=== PATIENT | female | born 1940 | race Caucasian/White ===

== ENCOUNTER → 2018-01-08 09:18 | Outpatient (CLI) | payer MEDICARE, OTHER, SELFPAY ==
[2018-01-08 10:29] LABS: Cholesterol 139 mg/dL (140-199); HDL Cholesterol 66 mg/dL (40-60); LDL Cholesterol Calculated 63 mg/dL (<100); Triglycerides 50 mg/dL (35-150)
== END ==
PROVIDERS: PCP Physician Assistant; Visit Provider Internal Medicine Cardiovascular Disease
DX: E78.5 Hyperlipidemia, unspecified (principal)
CPT/HCPCS: 36415; 80061

== ENCOUNTER → 2018-03-12 15:39 | Outpatient (CLI) | payer MEDICARE, OTHER, SELFPAY ==
--- NOTE | 2018-03-12 | DI.US.S_ITS ---
PROCEDURE: US ARTERIAL DUPLEX LE BI INDICATIONS: ATHERSCLEROTIC PLAQUE TECHNIQUE: Color and pulse Doppler interrogation was performed of both lower extremity arterial systems, with image documentation. COMPARISON: None. FINDINGS: Right lower extremity: Common femoral artery: 134 cm/sec, with triphasic flow. Deep femoral artery: 52 cm/sec, with biphasic flow. Proximal superficial femoral artery: 82 cm/sec, with biphasic flow. Mid superficial femoral artery: 102 cm/sec, with biphasic flow. Distal superficial femoral artery: 75 cm/sec, with biphasic flow. Popliteal artery: 53 cm/sec, with biphasic flow. Posterior tibial artery: 48 cm/sec, with a biphasic flow. Anterior tibial artery/dorsalis pedis: 27 cm/sec, with biphasic flow. Smith-scale imaging description: Mild scattered calcific and soft plaque. Left lower extremity: Common femoral artery: 128 cm/sec, with triphasic flow. Deep femoral artery: 74 cm/sec, with biphasic flow. Proximal superficial femoral artery: 141 cm/sec, with biphasic flow. Mid superficial femoral artery: 93 cm/sec, with biphasic flow. Distal superficial femoral artery: 85 cm/sec, with biphasic flow. Popliteal artery: 65 cm/sec, with biphasic flow. Posterior tibial artery: 87 cm/sec, with biphasic flow. Anterior tibial artery/dorsalis pedis: 49 cm/sec, with a biphasic flow. Smith-scale imaging description: Mild calcific and soft plaque. IMPRESSION: No significant stenosis found. Scattered calcific and soft plaque within the lower extremity arterial vasculature bilaterally. Dictated by: Umberto Simpson M.D. on 03/12/2018 at 16:48 Approved by: Umberto Simpson M.D. on 03/12/2018 at 16:51
== END ==
PROVIDERS: PCP Physician Assistant; Visit Provider Internal Medicine Cardiovascular Disease
DX: I70.203 Unspecified atherosclerosis of native arteries of extremities, bilateral legs (principal)
CPT/HCPCS: 93925

== ENCOUNTER → 2018-03-26 12:37 | Outpatient (CLI) | payer MEDICARE, OTHER, SELFPAY ==
--- NOTE | 2018-03-26 | DI.MRI.S_ITS ---
PROCEDURE: MR ABDOMEN WO CON INDICATIONS: INTRADUCTAL PAPILLARY MUCINOUS NEOPLASM TECHNIQUE: Coronal HASTE through the abdomen, axial 2-D FLASH in- and [id number], and breath-hold T2 FSE with fat saturation through the biliary system and pancreas. Oblique coronal and axial thin-slice HASTE, radial thick-slab HASTE centered on the extrahepatic bile ducts. COMPARISON: [facility], CT, IVP (ABD & PEL WWO CONTRAST), 09/29/2014, 11:29. [facility], CT, ABDOMEN/PELVIS WITHOUT CONTRAS, 07/17/2016, 12:52. [facility], MR, ABDOMEN W&WO CONTRAST, 06/10/2017, 15:58. [facility], CT, ABDOMEN/PELVIS WITH CONTRAST, 11/01/2017, 18:19. FINDINGS: Image quality: There is motion artifact limiting evaluation. Pancreas: There is segmental dilatation of the distal pancreatic duct in the tail measures up to approximately 10 mm in diameter. This has progressively increased in size compared to the prior studies. 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 The more proximal pancreatic duct within the body and pancreatic head are normal in caliber measuring up to 3 mm. There is a small cyst in the pancreatic body adjacent to the main duct measuring up to 6 mm palpable with a small side branch IPMN. Other solid organs: Noncontrast evaluation of the liver demonstrates no focal hepatic lesions. Gallbladder appears within normal limits without gallstones. No intra-or extrahepatic biliary ductal dilatation. Spleen is normal in size. No adrenal nodules. Kidneys demonstrate no hydronephrosis. Nodes and vessels: No retroperitoneal or mesenteric adenopathy by size criteria. Aorta and inferior vena cava are normal in size. Bowel and peritoneum: Visualized bowel loops are normal in caliber. No free fluid. Lung bases: No basal pleural effusions. Heart size is normal. Bones and soft tissues: No ventral hernias. Bone marrow is of normal overall signal. IMPRESSION: 1. Segmental dilatation of the distal pancreatic duct in the tail progressively increased in diameter compared to the prior studies. 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 Given its progressive increase increase in distention and maximum diameter of 10 mm, there is increased risk of malignancy. Recommend histologic sampling with FNA if clinically indicated. 2. Small side branch IPMN in the pancreatic body also noted measuring up to 6 mm. Dictated by: Darryl Diego M.D. on 03/26/2018 at 16:45 Approved by: Darryl Diego M.D. on 03/26/2018 at 17:00
== END ==
PROVIDERS: Family Provider Internal Medicine Gastroenterology; PCP Physician Assistant; Visit Provider Surgery
DX: D49.0 Neoplasm of unspecified behavior of digestive system (principal)
CPT/HCPCS: 74181

== ENCOUNTER → 2018-04-15 11:49 | Outpatient (CLI) | payer MEDICARE, OTHER, SELFPAY ==
--- NOTE | 2018-05-02 10:11 | PM.PFT.1 ---
Pulmonary Function Test Referral & Results Date Patient Seen: 04/15/18 Requesting provider: Sadia Latif Indication: COPD Results: The spirometry demonstrates an FVC of 2.02 L which is 60% of predicted. The FEV1 was measured at 1.34 L which is 61% of predicted. The FEV1/FVC ratio was 67 which is 89% of predicted. Following the administration of bronchodilator there was 11% improvement in FEV1 and a 53% improvement in FEF 25-75%. Lung volumes show an SVC of 2.13 L which is 73% of predicted. Maximum voluntary ventilation was reduced The diffusing capacity was measured at 19.81 which is 73% of predicted. No hemoglobin value was provided, so no correction for potential anemia could be made, if appropriate. Interpretation: This study demonstrates moderate obstructive lung disease with some evidence of benefit following bronchodilator based on improvement in FEV1 as well as moderate restrictive lung disease. There is also slight reduction in diffusing capacity unless patient is anemic Compared to PFTs performed in June 2016, current study is essentially unchanged to slightly improved. FEV1 is actually slightly improved at 1.34 L versus 1.25 L previously. Diffusing capacity is significantly improved from previous which was 41% of predicted currently 73% of predicted. Clinical correlation suggested
== END ==
PROVIDERS: Family Provider Internal Medicine Gastroenterology; PCP Physician Assistant; Visit Provider Internal Medicine Critical Care Medicine
DX: J44.9 Chronic obstructive pulmonary disease, unspecified (principal)
CPT/HCPCS: 94010; 94060; 94726; 94729

== ENCOUNTER → 2018-05-08 11:28 | Outpatient (CLI) | payer MEDICARE, OTHER, SELFPAY ==
[2018-05-08 12:11] LABS: Add Manual Diff / Slide Review NO; Basophils Percent Auto 0.7 % (0-2); Eosinophils Percent Auto 0.9 % (2-4); Hemoglobin 15.3 g/dL (12.0-16.0); Lymphocytes Percent Auto 16.9 % (25-40); Mean Corpuscular HGB Conc 34.1 % (30-36); Mean Corpuscular Hemoglobin 32.8 PG (26-34); Mean Corpuscular Volume 96.3 fL (80-100); Monocytes Percent Auto 6.4 % (3-14); Neutrophils Absolute Auto 6900 /uL (3000-5900); Neutrophils Percent Auto 75.1 % (50-75); Platelet Count 270 X10^3/uL (150-400); Red Blood Cell Count 4.68 X10^6/uL (4.0-5.2); Red Cell Distribution Width 13.3 % (11.6-14.8); White Blood Cell Count 9.2 X10^3/uL (4.5-11.0)
[2018-05-08 12:48] LABS: Alanine Aminotransferase 34 IU/L (9-52); Albumin 4.5 g/dL (3.5-5.0); Albumin Globulin Ratio 1.5 (1.0-2.8); Alkaline Phosphatase 71 U/L (38-126); Aspartate Aminotransferase 25 IU/L (14-36); BUN Creatinine Ratio 23.8 (6-22); Bilirubin Total 0.9 mg/dL (0.2-1.3); Blood Urea Nitrogen 19 mg/dL (7-17); Calcium 9.9 mg/dL (8.4-10.2); Carbon Dioxide 36 mmol/L (22-32); Chloride 100 mmol/L (98-107); Estimated Glomerular Filt Rate > 60.0 mL/min (>60); Glucose 103 mg/dL (80-110); HEMOLYSIS < 15 (0-50); Potassium 4.6 mmol/L (3.4-5.1); Sodium 146 mmol/L (137-145); Total Protein 7.5 g/dL (6.3-8.2)
== END ==
PROVIDERS: PCP Physician Assistant; Visit Provider Surgery
DX: R93.3 Abnormal findings on diagnostic imaging of other parts of digestive tract (principal); Z01.818 Encounter for other preprocedural examination
CPT/HCPCS: 36415; 80053; 85025; 93005

== ENCOUNTER → 2018-05-31 11:29 | Outpatient (REF) | payer MEDICARE, OTHER, SELFPAY ==
[2018-05-31 11:32] LABS: Bacteria Urine None Seen; RBC Urine None Seen (0-5/HPF); WBC Urine None Seen (0-5/HPF)
[2018-05-31 11:55] LABS: Appearance Urine UA CLEAR; Bilirubin Urine UA NEGATIVE (NEGATIVE); Color Urine UA YELLOW; Glucose Urine UA NEGATIVE (Normal); Ketones Urine UA NEGATIVE (NEGATIVE); Leukocyte Esterase Urine UA NEGATIVE (NEGATIVE); Nitrite Urine UA NEGATIVE (Negative); Occult Blood Urine UA NEGATIVE (Negative); Protein Urine UA NEGATIVE (Negative); Urobilinogen Urine UA 0.2 E.U./dL (0.2)
[2018-05-31 12:17] LABS: Culture Indicated Urine Cult Not Indicated; Urine Comments Microscopic Normal
== END ==
LOC: LAB 11:29
PROVIDERS: Family Provider Internal Medicine Gastroenterology; PCP Physician Assistant; Visit Provider Physician Assistant
DX: R30.0 Dysuria (principal)
CPT/HCPCS: 81001; 87086

== ENCOUNTER → 2018-07-10 09:15 | Outpatient (CLI) | payer MEDICARE, OTHER, SELFPAY ==
[2018-07-10 10:14] LABS: Add Manual Diff / Slide Review NO; Basophils Percent Auto 1.3 % (0-2); Hemoglobin 13.9 g/dL (12.0-16.0); Lymphocytes Percent Auto 19.8 % (25-40); Mean Corpuscular Hemoglobin 32.4 PG (26-34); Mean Corpuscular Volume 98.3 fL (80-100); Monocytes Percent Auto 8.4 % (3-14); Neutrophils Absolute Auto 6700 /uL (3000-5900); Neutrophils Percent Auto 68.5 % (50-75); Platelet Count 430 X10^3/uL (150-400); Red Blood Cell Count 4.27 X10^6/uL (4.0-5.2); Red Cell Distribution Width 13.7 % (11.6-14.8); White Blood Cell Count 9.8 X10^3/uL (4.5-11.0)
[2018-07-10 11:10] LABS: Alanine Aminotransferase 32 IU/L (9-52); Albumin 4.3 g/dL (3.5-5.0); Albumin Globulin Ratio 1.6 (1.0-2.8); Alkaline Phosphatase 79 U/L (38-126); Aspartate Aminotransferase 28 IU/L (14-36); Blood Urea Nitrogen 27 mg/dL (7-17); Carbon Dioxide 33 mmol/L (22-32); Chloride 102 mmol/L (98-107); Estimated Glomerular Filt Rate > 60.0 mL/min (>60); Globulin 2.7 g/dL (1.7-4.1); Glucose 101 mg/dL (80-110); HEMOLYSIS < 15 (0-50); Potassium 4.8 mmol/L (3.4-5.1); Sodium 146 mmol/L (137-145)
[2018-07-10 11:42] LABS: TSH w/ Reflex to FT4 2.02 uIU/mL (0.47-4.68)
[2018-07-10 11:43] LABS: Cancer Antigen 125 20 U/mL (0-35)
[2018-07-10 13:23] LABS: Free T4, Direct Thyroxine 1.28 ng/dL (0.78-2.19)
== END ==
PROVIDERS: PCP Physician Assistant; Visit Provider Physician Assistant
DX: Z12.73 Encounter for screening for malignant neoplasm of ovary (principal); R19.09 Other intra-abdominal and pelvic swelling, mass and lump; E78.5 Hyperlipidemia, unspecified; F17.200 Nicotine dependence, unspecified, uncomplicated; R63.4 Abnormal weight loss; E07.9 Disorder of thyroid, unspecified; R73.9 Hyperglycemia, unspecified
CPT/HCPCS: 36415; 80053; 84439; 84443; 85025; 86304

== ENCOUNTER → 2018-10-01 12:27 | Outpatient (CLI) | payer MEDICARE, OTHER, SELFPAY ==
--- NOTE | 2018-10-01 | DI.US.S_ITS ---
PROCEDURE: US PERIPH VENOUS LOW EXTREM LT INDICATIONS: LEFT LEG EDEMA TECHNIQUE: Real-time imaging, as well as color and pulse Doppler interrogation, were performed of the lower extremity deep veins from the inguinal ligament to the popliteal fossa. COMPARISON: None. FINDINGS: The deep veins are normally compressible, and free of intraluminal thrombus. Color and pulse Doppler demonstrate normal phasic intraluminal flow. There is normal augmentation response to distal compression maneuver. Nonspecific left lower extremity edema is noted. IMPRESSION: No evidence of deep vein thrombosis involving the left lower extremity. Dictated by: Claudia Alfredo MD, PhD on 10/01/2018 at 13:29 Approved by: Claudia Alfredo MD, PhD on 10/01/2018 at 13:29
== END ==
PROVIDERS: PCP Physician Assistant; Visit Provider Internal Medicine Critical Care Medicine
DX: R60.0 Localized edema (principal)
CPT/HCPCS: 93971

== ENCOUNTER → 2018-10-14 11:57 | Outpatient (CLI) | payer MEDICARE, OTHER, SELFPAY ==
--- NOTE | 2018-10-14 12:04 | DI.RAD.S_ITS ---
PROCEDURE: XR CHEST 2V INDICATIONS: COPD TECHNIQUE: 2 views of the chest were acquired. COMPARISON: [facility], , CHEST 2 VIEW, 07/19/2016, 15:58. FINDINGS: Surgical changes and devices: Surgical clips projecting over the right hemithorax as before. Lungs and pleura: Lungs are hyperinflated. No acute consolidation. Scattered subsegmental atelectasis and/or scarring. No pleural effusions or pneumothorax. Mediastinum: Mediastinal contours are normal. Heart size is normal. Bones and chest wall: No suspicious bony abnormalities. Soft tissues appear unremarkable. IMPRESSION: No acute consolidation. Hyperinflated lungs in keeping with chronic obstructive physiology. Dictated by: Rickie Larson M.D. on 10/14/2018 at 14:37 Approved by: Rickie Larson M.D. on 10/14/2018 at 14:38
[2018-10-14 12:36] LABS: Add Manual Diff / Slide Review NO; Basophils Absolute Auto 100 /uL (0-100); Basophils Percent Auto 1.3 % (0-2); Eosinophils Absolute Auto 100 /uL (0-450); Eosinophils Percent Auto 0.9 % (2-4); Hematocrit 45.5 % (36-46); Hemoglobin 15.4 g/dL (12.0-16.0); Lymphocytes Absolute Auto 2500 /uL (1100-4500); Lymphocytes Percent Auto 29.5 % (25-40); Mean Corpuscular HGB Conc 33.9 % (30-36); Mean Corpuscular Hemoglobin 32.9 PG (26-34); Mean Corpuscular Volume 97.1 fL (80-100); Monocytes Absolute Auto 800 /uL (0-900); Monocytes Percent Auto 9.6 % (3-14); Neutrophils Absolute Auto 5000 /uL (1500-7000); Neutrophils Percent Auto 58.7 % (50-75); Platelet Count 292 X10^3/uL (150-400); Red Blood Cell Count 4.68 X10^6/uL (4.0-5.2); Red Cell Distribution Width 13.8 % (11.6-14.8); White Blood Cell Count 8.5 X10^3/uL (4.5-11.0)
--- NOTE | 2018-10-14 12:37 | DI.CT.S_ITS ---
PROCEDURE: CT ABDOMEN WO/W CON INDICATIONS: INTRADUCTAL PAPILLARY MUCINOUS NEOPLASM TECHNIQUE: Noncontrast 3 mm thick sections acquired through the pancreas. After the administration of intravenous contrast, 3 mm thick pancreatic-phase images acquired from the diaphragm to the iliac crests. 3 mm thick coronal and sagittal reformats were performed. For radiation dose reduction, the following was used: automated exposure control, adjustment of mA and/or kV according to patient size. COMPARISON: [facility], MR, MR ABDOMEN WO CON, 03/26/2018, 12:57. [facility], CT, ABDOMEN/PELVIS WITH CONTRAST, 11/01/2017, 18:19. FINDINGS: Image quality: Excellent. Lung bases: Mild bibasilar interstitial septal thickening/scarring. Lung bases are otherwise clear. Heart size is normal. Pancreas: There has been interval surgical change of distal pancreatectomy and splenectomy. A 6 mm cyst in the caudal proximal tail of the pancreas is stable. Proximal pancreas has otherwise homogeneous morphology. The pancreatic duct measures 3 mm. Other solid organs: Liver is normal in size and enhancement. Gallbladder is elongated. The visible portions normal. Biliary system is non dilated. Spleen is surgically absent. No residual splenic tissue. No adrenal nodules. Kidneys are normal in size and enhancement, without hydronephrosis. 3 mm right lower pole intrarenal calcification. Peritoneum and bowel: Distal stomach demonstrates mild low-density circumferential wall thickening of the antrum. The visible bowel loops demonstrate normal wall thickness and caliber. No free fluid or air. Nodes and vessels: No retroperitoneal or mesenteric adenopathy by size criteria. Aorta and inferior vena cava are normal in size. Moderately heavy abdominal aortic calcification. Bones: No suspicious bony lesions. No vertebral body compression fractures. Degenerative disc change at L4-5. Miscellaneous: No ventral hernias. IMPRESSION: 1. Interval distal pancreatectomy and splenectomy. 2. Stable 6 mm pancreatic cyst. 3. Heavy abdominal aortic atherosclerosis. 4. Nonobstructive 3 mm right lower pole calcification. Dictated by: Myra Jain M.D. on 10/14/2018 at 16:15 Approved by: Myra Jain M.D. on 10/14/2018 at 16:40
[2018-10-14 12:46] LABS: Alanine Aminotransferase 34 IU/L (9-52); Albumin 4.8 g/dL (3.5-5.0); Albumin Globulin Ratio 1.4 (1.0-2.8); Alkaline Phosphatase 85 U/L (38-126); Aspartate Aminotransferase 35 IU/L (14-36); BUN Creatinine Ratio 27.8 (6-22); Blood Urea Nitrogen 25 mg/dL (7-17); Calcium 9.8 mg/dL (8.4-10.2); Carbon Dioxide 31 mmol/L (22-32); Chloride 102 mmol/L (98-107); Estimated Glomerular Filt Rate > 60.0 mL/min (>60); Globulin 3.5 g/dL (1.7-4.1); Glucose 84 mg/dL (80-110); HEMOLYSIS < 15 (0-50); Potassium 5.2 mmol/L (3.4-5.1); Sodium 142 mmol/L (137-145); Total Protein 8.3 g/dL (6.3-8.2)
== END ==
PROVIDERS: PCP Physician Assistant; Referring Provider Internal Medicine Gastroenterology; Visit Provider Surgery
DX: K86.2 Cyst of pancreas (principal); I70.0 Atherosclerosis of aorta; N20.0 Calculus of kidney; J44.9 Chronic obstructive pulmonary disease, unspecified; Z90.81 Acquired absence of spleen
CPT/HCPCS: 36415; 71046; 74170; 80053; 85025; Q9967

== ENCOUNTER → 2019-03-21 08:29 | Outpatient (CLI) | payer MEDICARE, OTHER, SELFPAY ==
[2019-01-06 13:27] VITALS: BMI 19.2
[2019-03-21 10:03] LABS: Add Manual Diff / Slide Review NO; Basophils Absolute Auto 100 /uL (0-100); Eosinophils Absolute Auto 100 /uL (0-450); Eosinophils Percent Auto 1.2 % (2-4); Hematocrit 46.7 % (36-46); Hemoglobin 15.9 g/dL (12.0-16.0); Lymphocytes Absolute Auto 2200 /uL (1100-4500); Lymphocytes Percent Auto 19.9 % (25-40); Mean Corpuscular Hemoglobin 33.2 PG (26-34); Mean Corpuscular Volume 97.7 fL (80-100); Monocytes Absolute Auto 900 /uL (0-900); Monocytes Percent Auto 8.3 % (3-14); Neutrophils Absolute Auto 7700 /uL (1500-7000); Neutrophils Percent Auto 69.6 % (50-75); Platelet Count 261 X10^3/uL (150-400); Red Blood Cell Count 4.78 X10^6/uL (4.0-5.2); Red Cell Distribution Width 13.1 % (11.6-14.8); White Blood Cell Count 11.1 X10^3/uL (4.5-11.0)
[2019-03-21 10:11] LABS: BUN Creatinine Ratio 26.3 (6-22); Blood Urea Nitrogen 21 mg/dL (7-17); Calcium 9.7 mg/dL (8.4-10.2); Carbon Dioxide 31 mmol/L (22-32); Chloride 102 mmol/L (98-107); Cholesterol 143 mg/dL (140-199); Estimated Glomerular Filt Rate > 60.0 mL/min (>60); Glucose 99 mg/dL (80-110); HDL Cholesterol 61 mg/dL (40-60); HEMOLYSIS 21 (0-50); LDL Cholesterol Calculated 68 mg/dL (<100); Potassium 4.5 mmol/L (3.4-5.1); Sodium 141 mmol/L (137-145); Triglycerides 71 mg/dL (35-150)
== END ==
PROVIDERS: Family Provider Physician Assistant; PCP Physician Assistant; Visit Provider Internal Medicine Cardiovascular Disease
DX: E78.5 Hyperlipidemia, unspecified (principal); I70.90 Unspecified atherosclerosis
CPT/HCPCS: 36415; 80048; 80061; 85025

== ENCOUNTER 2019-05-06 11:30 | Outpatient (RCR) | payer MEDICARE, OTHER, SELFPAY ==
[2019-01-06 13:27] VITALS: BP 122/80; RESP 14; O2SAT 98; BMI 19.2
--- NOTE | 2019-01-06 13:51 | PR.IEVALNOTE ---
Current Diagnoses Chronic obstructive pulmonary disease, unspecified (01/06/19) Provider Team Visit Care Team Role Provider Type Hannah Rush PA-C Primary Care Provider Advanced Social Worker Psychiatric Specialty: Internal Medicine Address: [address] [place] [address], [phone] Email: Sadia Latif MD Attending Provider Non-Staff Specialty: Pulmonology Address: [address] [place] [address], [phone] Email: Pulmonary Rehab Initial Evaluation [place] Pulmonary Rehab Inital Assessment Start: 01/06/19 10:00 Freq: Status: Active Protocol: Document 01/06/19 13:27 CARA (Rec: 01/06/19 13:51 CARA [id number]) CO Exercise Assessment Dx: COPD moderate Primary Language ROMANSH Candy Butcher Required No Hearing Ability Normal Visual Impairment No Limitations Visual Assist Glasses Body Alignment Posture Good Posture Relaxed Assistive Devices None Comment no current exercise routine CO Vital Signs Pulse Oximetry (91-100 %) 98 Nasal Cannula No Respiratory Rate (12-24 breaths/min) 14 Respiratory Effort Non-Labored Respiratory Depth Normal Assessment clear to auscultation good areation no wheeze rhonchi or crackles Left Arm Blood Pressure (90/60-140/90 mmHg) 122/80 Blood Pressure Method Manual Cuff/Auscultation Blood Pressure Position Sitting CO Six Minute Walk Test Oxygen Delivery Method Nasal Cannula Oxygen Flow Rate (L) (L/min) 2 Respiratory Rate (breaths/min) 14 Pulse Rate (beats/min) 78 O2 Saturation by Pulse Oximetry (%) 98 Pulse Rate (beats/min) 86 Ambulation Distance (feet) 300 O2 Saturation by Pulse Oximetry (%) 95 Pulse Rate (beats/min) 92 Ambulation Distance (feet) 250 O2 Saturation by Pulse Oximetry (%) 97 Pulse Rate (beats/min) 92 Ambulatory Distance (feet) 250 O2 Saturation by Pulse Oximetry (%) 97 Pulse Rate (beats/min) 93 Ambulation Distance (feet) 300 O2 Saturation by Pulse Oximetry (%) 95 Pulse Rate (beats/min) 93 Ambulation Distance (feet) 300 O2 Saturation by Pulse Oximetry (%) 94 PUlse Rate (beats/min) 90 Ambulation Distance (feet) 325 O2 Saturation by Pulse Oximetry (%) 91 Respiratory Rate (breaths/min) 16 Pulse Rate (beats/min) 86 O2 Saturation by Pulse Oximetry (%) 98 Activity Tolerance Good Distance 1175 Marlyn RPE Scale 11 Oriented to RPE Scale Yes Dyspnea 2 Oriented to Dyspnea Scale Yes CO Exercise Goals Exercise Goals Progression of exercise volume will result from increases in time, intensity, and frequency. Initial emphasis will be on increasing time Exercise Goals demonstrate proper technique with pursed lip breathing demonstrate breath sequencing with ADL's, stairs, etc demonstrate proper technique with respiratory medications DASI Number and Comment NA Short Term establish regular exercise routine Detention improve stamina and muscle strength CO Pulmonary Rehab Orientation Complete Complete Yes CO Nutrition Assessment PFT Date 04/15/18 Forced Vital Capacity (FVC) 2.02 68% Slow Vital Capacity (SVC) 2.13 73% Forced Exp. Volume/Forced Vital Cap 67 89% Ratio (FEV1/FVC Ratio) Forced Expiratory Volume in 1 sec. 1.34 61% Diffusing Capacity of the Lung (DLCO) 73 Admit Height 167.64 cm Admit Weight 53.977 kg Admit Body Mass Index (BMI) 19.2 Liters Per Minute at Rest RA Liters per Minute with ADL's 2 Liters per Minute with Sleep 2 Liters per Minute with Exercise 2 Oxygen Intervention/Education Discussed supplemental O2 compliance with ADL's High Energy Periods Mid-Morning Afternoon Mid-Afternoon Tolerates Activity Fair Daytime Naps No CO Education Pre-Test Score NA Tobacco Use Current Smoker Tobacco Product Used CIGARETTES Additional Comment patient is currently smoking 1 /2 cigarette per day after having been quit for several months Concerns None Interested in Smoking Cessation No Not Interested in Smoking Cessation No Education Topics Breathing Retraining Discussed Education Requirements on Yes Intake CO Psychosocial Initial Assess HADS Score NA HADS Score NA Marital Status Physician Comment Ready for Pulmonary Rehabilitation Cooperative Motivated
--- NOTE | 2019-03-26 15:41 | PR.REVALNOTE ---
Current Diagnoses Chronic obstructive pulmonary disease, unspecified (03/26/19) Provider Team Visit Care Team Role Provider Type Hannah Rush PA-C Primary Care Provider Advanced Developmental Therapist Specialty: Internal Medicine Address: [address] [place] [address], [phone] Email: [email or web address] Sadia Latif MD Attending Provider Non-Staff Specialty: Pulmonology Address: [address] [place] [address], [phone] Email: Pulmonary Rehab Re-Evaluation [place] Pulmonary Rehab. Re-Assessment Start: 01/06/19 10:00 Freq: Status: Active Protocol: Document 02/12/19 15:40 DEYANIRAChristopher (Rec: 02/12/19 15:40 JWChristopher [email or web address]) [place] Exercise Re-Assessment New Session Number 1-12 Type Nustep Treadmill Interval Training Yes Shortness of Breath with Exercise Yes Desaturation with Exercise No Document 03/26/19 15:28 JWS (Rec: 03/26/19 15:41 JWS [id number]) AK Exercise Re-Assessment New Session Number 12-24 Type Nustep Treadmill METs (resistance level) 2.78 NS 4.67 TM % Improvement 20% NS 8%NS Interval Training Yes: 4.67 NS Shortness of Breath with Exercise Yes Desaturation with Exercise No Free Weight Yes: 5# 12R 2S Band Level Yes: #4 Toward Target Goals Demonstrates proper technique with PLB-goal met demonstrates breath sequencing with ADL's and stairs-showing progress demonstrates proper technique with respiratory medications- goal met interventions listeed above have been completed will continue to reinforce AK Education Re-Assessment Topics Normal Anatomy and Physiology Breathing Retraining Medication Benefits of Exercise Activities of daily living/ Leisure Activities Irritant Avoidance/Prevention of Respiratory Infections Coping with Chronic Lung Disease Goals Pt will Master PLB and Diaphragmatic Breathing Pt will Master Energy Conserving Techniques Pt will learn exercise safety Pt will continue ED topics until completion AK Psychosocial Re-Assessment Patient in Class Regularly Yes Interventions Pt attending class regularly Referral Needed No Goals Pt will continue to attend classes 3x wk Participate in social and educational discussion Received emotional support from family/friends
--- NOTE | 2019-05-06 15:56 | PR.DCNOTE ---
Current Diagnoses Chronic obstructive pulmonary disease, unspecified (05/06/19) Visit Care Team Role Provider Type Hannah Rush PA-C Primary Care Provider Advanced Sql Report Writer Specialty: Internal Medicine Address: [address] [place] [address], [id number] Email: [email or web address] Sadia Latif MD Attending Provider Non-Staff Specialty: Pulmonology Address: [address] [place] [address], [phone] Email: Pulmonary Rehab Discharge Evaluation RI Education Start: 01/06/19 10:00 Freq: Status: Active Protocol: Document 05/04/19 13:34 [facility] (Rec: 05/04/19 13:35 [facility] [id number]) RI Education Education Pt did attend Education today with the Housekeeper/Custodian/Laundry Worker. Subjects to include, Labels/Sugars and Salts. [place] Pulmonary Rehab. DC Assessment Start: 01/06/19 10:00 Freq: Status: Active Protocol: Document 05/06/19 15:42 JW (Rec: 05/06/19 15:56 [facility] [email or web address]) RI Exercise Discharge Assess Session 9 Type Nustep,Treadmill METs (resistance level) 6.31 TM, 4.35 NS % Improvement 6% TM, 56% NS Interval Training Yes: 8.93TM, 4.88 NS Shortness of Breath with Exercise Yes Desaturation with Exercise No Free Weight Yes: 4# 12R 2S Band Level Yes: #4 Toward Target Goals Increased participation in physical activities, including domestic and recreational activities. Improved functional capacity with improved endurance and strength. participates in aerobic exercise 30-60 min 3x week increased met tolerance 198% RI Nutrition DC Assessment Patient Ready Yes Reason Completed Max Sessions RI Education DC Assessment Post Test Score 79% % Improvement 0% Tobacco Use No RI Psychosocial DC Assessment HADS Depression Score 1 HADS Anxiety Score 5 Phase III Yes Referral Needed No RI Six Minute Walk Test Oxygen Delivery Method Nasal Cannula Oxygen Flow Rate (L) (L/min) 2.5 Respiratory Rate (breaths/min) 14 Pulse Rate (beats/min) 76 O2 Saturation by Pulse Oximetry (%) 95 Pulse Rate (beats/min) 85 Ambulation Distance (feet) 350 O2 Saturation by Pulse Oximetry (%) 95 Pulse Rate (beats/min) 91 Ambulation Distance (feet) 300 O2 Saturation by Pulse Oximetry (%) 98 Pulse Rate (beats/min) 97 Ambulatory Distance (feet) 300 O2 Saturation by Pulse Oximetry (%) 96 Pulse Rate (beats/min) 98 Ambulation Distance (feet) 250 O2 Saturation by Pulse Oximetry (%) 98 Pulse Rate (beats/min) 101 Ambulation Distance (feet) 300 O2 Saturation by Pulse Oximetry (%) 95 PUlse Rate (beats/min) 100 Ambulation Distance (feet) 340 O2 Saturation by Pulse Oximetry (%) 98 Respiratory Rate (breaths/min) 16 Pulse Rate (beats/min) 86 O2 Saturation by Pulse Oximetry (%) 98 Activity Tolerance Good Adverse Reactions Increased Shortness of Breath Distance 1939 Marlyn RPE Scale 10 Oriented to RPE Scale Yes Dyspnea 1 Oriented to Dyspnea Scale Yes
== END 2019-05-14 07:49 ==
LOC: PUL 11:30
PROVIDERS: PCP Physician Assistant; Visit Provider Internal Medicine Critical Care Medicine
DX: J44.9 Chronic obstructive pulmonary disease, unspecified (principal)
CPT/HCPCS: G0424

== ENCOUNTER → 2019-05-07 09:50 | Outpatient (CLI) | payer MEDICARE, OTHER, SELFPAY ==
[2019-01-06 13:27] VITALS: BMI 19.2
--- NOTE | 2019-05-07 | DI.CT.S_ITS ---
PROCEDURE: CT ABDOMEN WO/W CON INDICATIONS: PANCREATIC CYST TECHNIQUE: Noncontrast 3 mm thick sections acquired through the pancreas. After the administration of intravenous contrast, 3 mm thick pancreatic-phase images acquired from the diaphragm to the iliac crests. 3 mm thick coronal and sagittal reformats were performed. For radiation dose reduction, the following was used: automated exposure control, adjustment of mA and/or kV according to patient size. COMPARISON: [facility], CT, CT ABDOMEN WO/W CON, 10/14/2018, 13:02. MRI abdomen 03/26/2018. CT IVP 09/29/2014. FINDINGS: Image quality: Excellent. Lung bases: Lung bases are clear. Heart size is normal. Pancreas: Post distal pancreatectomy. Small cyst in the body measuring 5 mm, (3/42), unchanged in size compared to MRI 03/26/2018. No main duct communication or suspicious enhancing mural nodule. No pancreatic ductal dilatation. No mass demonstrated. Other solid organs: Liver is normal in size and enhancement. No focal lesion. Gallbladder is unremarkable. Biliary system is non dilated. Spleen is surgically absent. No adrenal nodules. Kidneys are normal in size and enhancement, without hydronephrosis. A 3 mm nonobstructing calculus at the inferior pole the right kidney. Peritoneum and bowel: Unenhanced bowel loops demonstrate normal wall thickness and caliber. No free fluid or air. Nodes and vessels: No retroperitoneal or mesenteric adenopathy by size criteria. Aorta and inferior vena cava are normal in size. Extensive calcified atherosclerotic plaque. Bones: No suspicious bony lesions. No vertebral body compression fractures. Moderate degenerative change. Miscellaneous: Tiny fat containing ventral abdominal wall hernia. IMPRESSION: 1. Stable pancreatic body cyst measuring 5 mm since 10/14/2018. No suspicious imaging features. Followup contrast enhanced CT or MRI in one year should be considered. 2. Post distal pancreatectomy and splenectomy. Dictated by: Bi Baker M.D. on 05/07/2019 at 17:06 Approved by: Bi Baker M.D. on 05/07/2019 at 17:21
[2019-05-07 10:49] LABS: Alanine Aminotransferase 32 IU/L (9-52); Albumin 4.5 g/dL (3.5-5.0); Albumin Globulin Ratio 1.5 (1.0-2.8); Alkaline Phosphatase 83 U/L (38-126); Aspartate Aminotransferase 35 IU/L (14-36); BUN Creatinine Ratio 31.3 (6-22); Bilirubin Total 1.2 mg/dL (0.2-1.3); Blood Urea Nitrogen 25 mg/dL (7-17); Calcium 10.3 mg/dL (8.4-10.2); Carbon Dioxide 35 mmol/L (22-32); Chloride 98 mmol/L (98-107); Estimated Glomerular Filt Rate > 60.0 mL/min (>60); Glucose 106 mg/dL (80-110); HEMOLYSIS < 15 (0-50); Potassium 4.7 mmol/L (3.4-5.1); Sodium 142 mmol/L (137-145); Total Protein 7.5 g/dL (6.3-8.2)
== END ==
PROVIDERS: Family Provider Physician Assistant; PCP Physician Assistant; Visit Provider Internal Medicine Gastroenterology
DX: Z01.812 Encounter for preprocedural laboratory examination (principal); K86.2 Cyst of pancreas
CPT/HCPCS: 36415; 74170; 80053; Q9967

== ENCOUNTER → 2019-08-27 18:28 | Outpatient (ROUT) | payer MEDICARE, OTHER, SELFPAY ==
[2019-01-06 13:27] VITALS: BMI 19.2
[2019-08-27 18:37] LABS: Add Manual Diff / Slide Review NO; Basophils Absolute Auto 100 /uL (0-100); Basophils Percent Auto 0.9 % (0-2); Eosinophils Absolute Auto 100 /uL (0-450); Eosinophils Percent Auto 1.2 % (2-4); Hematocrit 44.3 % (36-46); Lymphocytes Absolute Auto 1900 /uL (1100-4500); Lymphocytes Percent Auto 23.6 % (25-40); Mean Corpuscular HGB Conc 33.7 % (30-36); Mean Corpuscular Hemoglobin 33.6 PG (26-34); Mean Corpuscular Volume 99.4 fL (80-100); Monocytes Absolute Auto 800 /uL (0-900); Monocytes Percent Auto 9.9 % (3-14); Neutrophils Absolute Auto 5100 /uL (1500-7000); Neutrophils Percent Auto 64.4 % (50-75); Platelet Count 280 X10^3/uL (150-400); Red Blood Cell Count 4.46 X10^6/uL (4.0-5.2); Red Cell Distribution Width 13.1 % (11.6-14.8)
[2019-08-27 18:52] LABS: Alanine Aminotransferase 21 IU/L (<35); Albumin 4.2 g/dL (3.5-5.0); Albumin Globulin Ratio 1.4 (1.0-2.8); Alkaline Phosphatase 86 U/L (38-126); Aspartate Aminotransferase 31 IU/L (14-36); BUN Creatinine Ratio 26.7 (6-22); Bilirubin Total 1.1 mg/dL (0.2-1.3); Blood Urea Nitrogen 24 mg/dL (7-17); Calcium 9.6 mg/dL (8.4-10.2); Carbon Dioxide 33 mmol/L (22-32); Chloride 100 mmol/L (98-107); Cholesterol 152 mg/dL (140-199); Estimated Glomerular Filt Rate > 60.0 mL/min (>60); Globulin 2.9 g/dL (1.7-4.1); Glucose 83 mg/dL (80-110); HDL Cholesterol 68 mg/dL (40-60); HEMOLYSIS < 15 (0-50); LDL Cholesterol Calculated 63 mg/dL (<100); Potassium 4.5 mmol/L (3.4-5.1); Sodium 141 mmol/L (137-145); Total Protein 7.1 g/dL (6.3-8.2); Triglycerides 106 mg/dL (35-150)
== END ==
PROVIDERS: Family Provider Physician Assistant; PCP Physician Assistant; Visit Provider Physician Assistant
DX: E78.5 Hyperlipidemia, unspecified (principal)
CPT/HCPCS: 80053; 80061; 85025

== ENCOUNTER → 2019-09-02 09:28 | Outpatient (CLI) | payer MEDICARE, OTHER, SELFPAY ==
[2019-01-06 13:27] VITALS: BMI 19.2
--- NOTE | 2019-09-02 | DI.US.S_ITS ---
PROCEDURE: US RENAL COMPLETE INDICATIONS: BILATERAL FLANK PAIN TECHNIQUE: Real-time scanning was performed of the kidneys and bladder, with image documentation. COMPARISON: [facility], CT, CT ABDOMEN WO/W CON, 05/07/2019, 10:58. FINDINGS: Kidneys: Kidneys are normal in size. Right kidney measures 10.6 cm long; left kidney measures 9.8 cm long. Right renal cortical thickness is 1.1 cm; left renal cortical thickness is 1.1 cm. Renal cortical echotexture is normal. No hydronephrosis or nephrolithiasis. The 3 mm stone seen on the right on the prior CT is not seen on the current study. No suspicious solid mass lesions. Bladder: Pre-void bladder volume is 94 mL. Post-void residual is 0 mL. Pre-void images demonstrate no intraluminal masses or stones. On pre-void images, neither of the ureteral jets are noted with color Doppler interrogation. (Of note, ureteral jets may not be detectable in up to 25% of cases due to insufficient differences in specific gravity between ureteral and bladder urine). Miscellaneous: No free pelvic fluid. IMPRESSION: Nonvisualization of the previously seen right-sided kidney stone. No hydronephrosis is seen. No postvoid residual. Dictated by: Braxton Wade M.D. on 09/02/2019 at 11:23 Approved by: Braxton Wade M.D. on 09/02/2019 at 11:24
== END ==
PROVIDERS: PCP Physician Assistant; Visit Provider Physician Assistant
DX: R10.9 Unspecified abdominal pain (principal); M85.852 Other specified disorders of bone density and structure, left thigh; Z78.0 Asymptomatic menopausal state; Z85.3 Personal history of malignant neoplasm of breast; F17.200 Nicotine dependence, unspecified, uncomplicated
CPT/HCPCS: 76770; 77080

== ENCOUNTER 2019-09-04 14:10 | Emergency (ER) | payer MEDICARE, OTHER, SELFPAY ==
[2019-01-06 13:27] VITALS: BMI 19.2
[2019-09-04 14:22] VITALS: BP 159/80; PULSE 80; RESP 16; TEMP 36.9; O2SAT 96; BMI 19.0
--- NOTE | 2019-09-04 14:29 | DI.RAD.S_ITS ---
PROCEDURE: XR CHEST 1V INDICATIONS: chest pain TECHNIQUE: One view of the chest was acquired. COMPARISON: [facility], , XR CHEST 2V, 10/14/2018, 12:32. [facility], , CHEST 2 VIEW, 07/19/2016, 15:58. FINDINGS: Surgical changes and devices: Right breast and axilla clips. Lungs and pleura: Prominence of the pulmonary markings, unchanged. No consolidative opacity. No pleural effusions or pneumothorax. Mediastinum: Mediastinal contours appear normal. Heart size is normal. Bones and chest wall: No suspicious bony lesions. Overlying soft tissues appear unremarkable. IMPRESSION: No acute cardiopulmonary abnormality. Emphysematous change. Dictated by: Bi Baker M.D. on 09/04/2019 at 15:06 Approved by: Bi Baker M.D. on 09/04/2019 at 15:15
[2019-09-04 14:57] LABS: Add Manual Diff / Slide Review NO; Basophils Absolute Auto 100 /uL (0-100); Basophils Percent Auto 0.8 % (0-2); Eosinophils Absolute Auto 100 /uL (0-450); Eosinophils Percent Auto 0.8 % (2-4); Hematocrit 45.9 % (36-46); Hemoglobin 15.4 g/dL (12.0-16.0); Lymphocytes Absolute Auto 2400 /uL (1100-4500); Lymphocytes Percent Auto 23.2 % (25-40); Mean Corpuscular HGB Conc 33.6 % (30-36); Mean Corpuscular Hemoglobin 33.4 PG (26-34); Mean Corpuscular Volume 99.4 fL (80-100); Monocytes Absolute Auto 800 /uL (0-900); Monocytes Percent Auto 7.2 % (3-14); Neutrophils Absolute Auto 7100 /uL (1500-7000); Platelet Count 287 X10^3/uL (150-400); Red Blood Cell Count 4.62 X10^6/uL (4.0-5.2); White Blood Cell Count 10.4 X10^3/uL (4.5-11.0)
[2019-09-04 15:03] LABS: INR 0.9 (0.9-1.3); Prothrombin Time 10.6 SECONDS (10.1-12.7)
[2019-09-04 15:06] LABS: PTT Partial Thromboplastin Tim 35 SECONDS (26.4-36.2)
[2019-09-04 15:11] LABS: Alanine Aminotransferase 26 IU/L (<35); Albumin 4.8 g/dL (3.5-5.0); Albumin Globulin Ratio 1.4 (1.0-2.8); Alkaline Phosphatase 83 U/L (38-126); Aspartate Aminotransferase 36 IU/L (14-36); BUN Creatinine Ratio 26.3 (6-22); Bilirubin Total 1.2 mg/dL (0.2-1.3); Blood Urea Nitrogen 21 mg/dL (7-17); Calcium 10.2 mg/dL (8.4-10.2); Carbon Dioxide 32 mmol/L (22-32); Chloride 101 mmol/L (98-107); Creatine Kinase 86 U/L (30-135); Estimated Glomerular Filt Rate > 60.0 mL/min (>60); Globulin 3.4 g/dL (1.7-4.1); Glucose 101 mg/dL (80-110); HEMOLYSIS < 15 (0-50); Lipase 60 U/L (23-300); Potassium 4.4 mmol/L (3.4-5.1); Sodium 142 mmol/L (137-145); Total Protein 8.2 g/dL (6.3-8.2)
[2019-09-04 15:22] LABS: Troponin I < 0.012 ng/mL (0.01-0.034)
[2019-09-04 16:37] VITALS: BP 160/69; PULSE 60; RESP 18; O2SAT 99
--- NOTE | 2019-09-04 21:26 | ED_ITS ---
HPI - Chest Pain General Chief Complaint: Chest Pain Stated Complaint: chest and upper back pain Source: patient and family Mode of arrival: Family Vehicle Limitations: no limitations History of Present Illness HPI narrative: The patient is 78-year-old female who developed pain in her upper left back. The pain is located in the area of in the area of her left scapula. She initially woke up feeling fine after an hour of being up she developed the pain and discomfort. She states that the pain is sharp and hurts to take a deep breath cough twist and move. 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 She denies any pain and discomfort in her anterior chest. She denies that she had a pancreatectomy secondary to cancer. She has had no fever chills or sweats. She periodically smoke cigarettes and drinks alcohol socially. She occasionally smokes marijuana. Her cough is minimally productive of a muddy sputum without blood. She denies any abdominal pain nausea vomiting dizziness palpitations fall injury or headache. Related Data Home Medications Medication Instructions Recorded Confirmed [id number] [Creon] #0 11/06/17 rosuvastatin 2.5 mg PO DAILY 09/04/19 09/04/19 umeclidinium [Incruse Ellipta] 1 inh INHALATION DAILY 09/04/19 09/04/19 Previous Rx's Medication Instructions Recorded lactulose [Kristalose] 10 gm PO BIDP PRN #10 ea 11/01/17 sennosides [Senna Lax] 8.6 mg PO BID #60 11/03/17 cyclobenzaprine 10 mg PO TID PRN #14 tab 09/04/19 naproxen [Naprosyn] 500 mg PO BID PRN #10 tab 09/04/19 Allergies Allergy/AdvReac Type Severity Reaction Status Date / Time bacitracin [BACITRACIN] Allergy Intermediate SWELLING Unverified 11/13/17 12:10 neomycin [NEOMYCIN] Allergy Intermediate SWELLING Unverified 11/13/17 12:10 polymyxin B [POLYMYXIN B] Allergy Intermediate SWELLING Unverified 11/13/17 12:1 0 Review of Systems Review of Systems ROS Unobtainable: All systems reviewed & are unremarkable except as noted in HPI and below Patient History Surgical History History of cataract removal with insertion of prosthetic lens (04/19/15) History of cataract removal with insertion of prosthetic lens (04/05/15) History of esophagogastroduodenoscopy (EGD) (02/15/15) Status post colonoscopy (06/29/13) Status post colonoscopy (04/30/11) Social History Smoking Status: Current every day smoker Smoking Status: Current every day smoker tobacco type: cigarettes alcohol intake frequency: holidays/special occasions only Substance Use Type: marijuana Exam Narrative Exam Narrative: PHYSICAL EXAM: CONSTITUTIONAL: Awake, Alert, Oriented, Coherent, Cooperative in NAD. Does not appear toxic or ill. She appears very thin. HEAD: AT/NC EENT: PERRL, FROM of eyes, no discharge, no nystagmus Oral mucosa is moist and pink, posterior pharynx is without erythema or exudate. NECK: Supple, no obvious JVD, Trachea is midline without stridor, no palpable LN or masses. SPINE: No gross deformity, no palpable tenderness of the cervical, thoracic, lumbar or sacral spine. No CVA tenderness. The patient is tender to palpation over the posterior thoracic ribs adjacent to the left scapula. The trapezius infraspinatus and supraspinatus muscles are tender to palpation. There is a muscle spasm and prominent rib medial to the scapula edge that is exquisitely tender to palpation. This pain is reproducible. THORAX: No deformity, retractions, subcutaneous air or crepitice. LUNGS: Clear with symmetrical breath sounds without respiratory distress HEART: Normal heart tones, regular rhythm and rate without murmur. ABDOMEN: Soft, non-tender, normal bowel sounds without guarding, rebound, rigidity or palpable mass . EXTREMITIES: No edema, cyanosis, deformity or tenderness. SKIN: No rash, bruising, petechiae or purpura. NEURO: Awake, alert, oriented, conversive, cranial nerves II-XII are symmetrical and normal, moves all 4 extremities and is ambulatory Initial Vital Signs Initial Vital Signs: Vital Signs Temperature 98.4 F 09/04/19 14:22 Pulse Rate 80 09/04/19 14:22 Respiratory Rate 16 09/04/19 14:22 Blood Pressure 159/80 H 09/04/19 14:22 Pulse Oximetry 96 09/04/19 14:22 Course Course Course Narrative: The patient has musculoskeletal chest wall tenderness posterior with muscle spasm tenderness. The pain and discomfort is reproducible. The patient was treated with Naprosyn for short time. And Flexeril as a muscle relaxant. The patient was advised to follow-up with her primary care physician. Orders Ordered: ED Orders 09/04/19 14:29 XR chest 1V Stat EKG-12 Lead Stat 09/04/19 14:49 Complete Blood Count AUTO DIFF Stat Comprehensive Metabolic Panel Stat Lipase Stat Partial Thromboplastin Time Stat Prothrombin Time INR Stat Troponin & CK Cardiac Panel Stat Vital Signs Vital signs: Vital Signs - 8 hr 09/04/19 14:22 09/04/19 16:37 Temperature 98.4 F Pulse Rate 80 60 Respiratory Rate 16 18 Blood Pressure 159/80 H Blood Pressure [Right Arm] 160/69 H Pulse Oximetry 96 99 MDM - Chest Pain Lab Data Result diagrams: 09/04/19 14:49 09/04/19 14:49 Labs: Lab Results 09/04/19 09/04/19 09/04/19 Range/Units 14:49 14:49 14:49 WBC 10.4 (4.5-11.0) X10^3/uL RBC 4.62 (4.0-5.2) X10^6/uL Hgb 15.4 (12.0-16.0) g/dL Hct 45.9 (36-46) % MCV 99.4 (80-100) fL MCH 33.4 (26-34) PG MCHC 33.6 (30-36) % RDW 13.0 (11.6-14.8) % Plt Count 287 (150-400) X10^3/uL Neut % (Auto) 68.0 (50-75) % Lymph % (Auto) 23.2 L (25-40) % Luna % (Auto) 7.2 (3-14) % Eos % (Auto) 0.8 L (2-4) % Baso % (Auto) 0.8 (0-2) % Neut # (Auto) 7100 H (0747-7258) /uL Lymph # (Auto) 2400 (6150-4207) /uL Luna # (Auto) 800 (0-900) /uL Eos # (Auto) 100 (0-450) /uL Baso # (Auto) 100 (0-100) /uL PT 10.6 (10.1-12.7) SECONDS INR 0.9 (0.9-1.3) APTT 35 (26.4-36.2) SECONDS Sodium 142 (137-145) mmol/L Potassium 4.4 (3.4-5.1) mmol/L Chloride 101 (98-107) mmol/L Carbon Dioxide 32 (22-32) mmol/L BUN 21 H (7-17) mg/dL Creatinine 0.80 (0.52-1.04) mg/dL Estimated GFR > 60.0 (>60) mL/min BUN/Creatinine Ratio 26.3 H (6-22) Glucose 101 (80-110) mg/dL Calcium 10.2 (8.4-10.2) mg/dL Total Bilirubin 1.2 (0.2-1.3) mg/dL AST 36 (14-36) IU/L ALT 26 (<35) IU/L Alkaline Phosphatase 83 (38-126) U/L Total Creatine Kinase 86 (30-135) U/L CK-MB (CK-2) TNP CK-MB (CK-2) Rel Index TNP Troponin I < 0.012 (0.01-0.034) ng/mL Total Protein 8.2 (6.3-8.2) g/dL Albumin 4.8 (3.5-5.0) g/dL Globulin 3.4 (1.7-4.1) g/dL Albumin/Globulin Ratio 1.4 (1.0-2.8) Lipase 60 (23-300) U/L Discharge Plan Departure Patient Disposition: Home Clinical Impression: Chest wall pain, Muscle spasm of back Discharge Date/Time: 09/04/19 17:00 Instructions: DI for Atypical Chest Pain, DI for Chest Pain, DI for Back Spasm, DI for Muscle Spasm Activity Restrictions/Additional Instructions: Follow-up with your primary care physician and be re-evaluated in 48-72 hours especially if your pain does not improve with the medications. Take Naprosyn 500 mg twice a day for pain and discomfort as needed. For persistent pain and discomfort and spasms take the Flexeril as prescribed. Prescriptions: New naproxen [Naprosyn] 500 mg tablet 500 mg PO BID PRN (Reason: pain) Qty: 10 RF: 0 cyclobenzaprine 10 mg tablet 10 mg PO TID PRN (Reason: muscle spasm) Qty: 14 RF: 0 No Action lactulose [Kristalose] 10 GM packet 10 gm PO BIDP PRNQty: 10 RF: 0 sennosides [Senna Lax] 8.6 MG tablet 8.6 mg PO BID Qty: 60 RF: 0 [id number] [Creon] 3,000-9,500- 15,000 unit capsule,delayed release(DR/EC) Qty: 0 RF: 0 rosuvastatin 5 mg tablet 2.5 mg PO DAILY RF: 0 Incruse Ellipta 62.5 mcg/actuation blister with device 1 inh INHALATION DAILY RF: 0 Referrals: Hannah Rush PA-C [Primary Care Provider] -
== END 2019-09-04 17:00 | disposition home or self-care (01) ==
PROVIDERS: Emergency Provider Emergency Medicine; PCP Physician Assistant
DX: R07.89 Other chest pain (principal); M62.830 Muscle spasm of back
CPT/HCPCS: 36415; 71045; 80053; 82550; 83690; 84484; 85025; 85610; 85730; 93005; 93010; 99284; 99285

== ENCOUNTER → 2020-02-02 13:30 | Outpatient (CLI) | payer MEDICARE, OTHER, SELFPAY ==
[2019-01-06 13:27] VITALS: BMI 19.2
[2020-02-02 14:13] LABS: Add Manual Diff / Slide Review NO; Basophils Absolute Auto 100 /uL (0-100); Basophils Percent Auto 0.9 % (0-2); Eosinophils Absolute Auto 100 /uL (0-450); Eosinophils Percent Auto 0.6 % (2-4); Hematocrit 43.6 % (36-46); Hemoglobin 14.9 g/dL (12.0-16.0); Lymphocytes Absolute Auto 2600 /uL (1100-4500); Lymphocytes Percent Auto 26.5 % (25-40); Mean Corpuscular HGB Conc 34.2 % (30-36); Mean Corpuscular Hemoglobin 33.9 PG (26-34); Mean Corpuscular Volume 99.2 fL (80-100); Monocytes Absolute Auto 800 /uL (0-900); Monocytes Percent Auto 8.2 % (3-14); Neutrophils Absolute Auto 6300 /uL (1500-7000); Neutrophils Percent Auto 63.8 % (50-75); Platelet Count 253 X10^3/uL (150-400); Red Blood Cell Count 4.39 X10^6/uL (4.0-5.2); Red Cell Distribution Width 13.4 % (11.6-14.8); White Blood Cell Count 9.8 X10^3/uL (4.5-11.0)
[2020-02-02 14:32] LABS: Iron 79 ug/dL (37-170)
[2020-02-02 14:45] LABS: Percent Iron Saturation 19 % (15-50); Total Iron Binding Capacity 407 ug/dL (265-497); Transferrin 309 mg/dL (206-381)
[2020-02-02 15:05] LABS: HEMOLYSIS 17 (0-50); TSH w/ Reflex to FT4 1.23 uIU/mL (0.47-4.68)
[2020-02-02 15:16] LABS: Vitamin D 25 Hydroxy (D3) 50.1 ng/mL (30.0-100.0)
[2020-02-02 15:55] LABS: Alanine Aminotransferase 21 IU/L (<35); Albumin 4.5 g/dL (3.5-5.0); Albumin Globulin Ratio 1.7 (1.0-2.8); Alkaline Phosphatase 84 U/L (38-126); Aspartate Aminotransferase 31 IU/L (14-36); Bilirubin Total 0.8 mg/dL (0.2-1.3); Blood Urea Nitrogen 24 mg/dL (7-17); Carbon Dioxide 34 mmol/L (22-32); Chloride 101 mmol/L (98-107); Cholesterol 160 mg/dL (140-199); Estimated Glomerular Filt Rate > 60.0 mL/min (>60); Globulin 2.7 g/dL (1.7-4.1); Glucose 84 mg/dL (80-110); HDL Cholesterol 76 mg/dL (40-60); HEMOLYSIS < 15 (0-50); LDL Cholesterol Calculated 69 mg/dL (<100); Potassium 4.7 mmol/L (3.4-5.1); Sodium 141 mmol/L (137-145); Total Protein 7.2 g/dL (6.3-8.2); Triglycerides 74 mg/dL (35-150)
[2020-02-02 16:29] LABS: Ferritin 29 ng/mL (11-264)
[2020-02-03 10:08] LABS: Var-Zoster Immunity Screen 3098 index (Immune >165)
== END ==
PROVIDERS: PCP Physician Assistant; Referring Provider Physician Assistant; Visit Provider Physician Assistant
DX: J44.9 Chronic obstructive pulmonary disease, unspecified (principal); D64.9 Anemia, unspecified; R40.0 Somnolence; R53.83 Other fatigue; E78.5 Hyperlipidemia, unspecified; E55.9 Vitamin D deficiency, unspecified; Z01.84 Encounter for antibody response examination; Z20.820 Contact with and (suspected) exposure to varicella; D50.9 Iron deficiency anemia, unspecified
CPT/HCPCS: 36415; 80053; 80061; 82306; 82728; 83540; 83550; 84443; 85025; 86787

== ENCOUNTER → 2020-02-23 10:24 | Outpatient (CLI) | payer MEDICARE, OTHER, SELFPAY ==
[2019-01-06 13:27] VITALS: BMI 19.2
--- NOTE | 2020-02-23 10:31 | DI.CT.S_ITS ---
PROCEDURE: CT ABDOMEN PELVIS W CON INDICATIONS: UNSPECIFIED ABDOMINAL PAIN TECHNIQUE: After the administration of oral and intravenous contrast, 5 mm thick sections acquired from the diaphragms to the symphysis. 5 mm thick coronal and sagittal reformats were performed. For radiation dose reduction, the following was used: automated exposure control, adjustment of mA and/or kV according to patient size. COMPARISON: [facility], CT, ABDOMEN/PELVIS WITH CONTRAST, 11/01/2017, 18:19. FINDINGS: Image quality: Excellent. ABDOMEN: Lung bases: Lung bases are clear. Heart size is normal. Solid organs: Liver is normal in size and enhancement. Gallbladder is unremarkable. Biliary system is non-dilated. Interval distal pancreatectomy. There is a pancreatic body low-density lesion which is stable. Reference previous image 25/2 and current image /2. Mild pancreatic ductal dilatation has developed. The pancreatic duct was previously prominent. No obstructing pancreatic head mass. Interval splenectomy. No adrenal nodules. Kidneys are normal in size and enhancement, without hydronephrosis. Peritoneum and bowel: Stomach, small bowel, and colon loops are normal in caliber and wall thickness. No free fluid or air. Nodes and vessels: No retroperitoneal or mesenteric adenopathy. Aorta and inferior vena cava are normal in caliber. Advanced atherosclerotic calcifications involving the aorta and common iliac arteries. Miscellaneous: No ventral hernias. PELVIS: Genitourinary: Bladder wall thickness is normal. Miscellaneous: No inguinal hernias or adenopathy. Bones: No suspicious bony lesions. No vertebral body compression fractures. IMPRESSION: 1. Interval distal pancreatectomy and splenectomy with no evidence of recurrence in the region of the previous pancreatic tail lesion. 2. Stable 5 mm cystic lesion in the pancreatic body. Consider very small IPMN versus tiny cystic neoplasm of the pancreas versus small pseudocyst. 3. Development of mild pancreatic ductal dilatation without evidence of obstructing pancreatic head mass. Dictated by: Rasheed Loaiza M.D. on 02/23/2020 at 13:29 Approved by: Rasheed Loaiza M.D. on 02/23/2020 at 13:37
[2020-02-23 11:22] LABS: BUN Creatinine Ratio 25.3 (6-22); Blood Urea Nitrogen 22 mg/dL (7-17); Estimated Glomerular Filt Rate > 60.0 mL/min (>60)
--- NOTE | 2020-02-23 12:04 | DI.CT.S_ITS ---
PROCEDURE: CT CHEST WO CON INDICATIONS: chronic cough TECHNIQUE: Noncontrast 5 mm thick sections acquired from the pulmonary apices to the posterior costophrenic angles. 1 mm lung window, 5 mm thick coronal and sagittal and 7 mm axial MIP reformats were then acquired. For radiation dose reduction, the following was used: automated exposure control, adjustment of mA and/or kV according to patient size. COMPARISON: [facility], CT, THORAX WITHOUT CONTRAST, 09/17/2017, 11:02. [facility], CT, CT ABDOMEN PELVIS W CON, 02/23/2020, 11:56. FINDINGS: Image quality: Excellent. Lungs and pleura: No acute air space opacities. Biapical pleural scarring. No pleural effusions or pneumothorax. Secretions in the trachea and within the bronchi and distal airways. Mild reticulation at the lung bases which may be due to scarring or atelectasis. Subpleural thickening most pronounced in the right upper lobe is unchanged since 2018. Mediastinum: Heart size is normal. No pericardial effusion. No mediastinal adenopathy by size criteria. Thoracic aorta and central pulmonary arteries are normal in size. Aortic arch calcifications. Esophagus is normal in caliber. No hiatal hernia. Bones and chest wall: No suspicious bony lesions. No vertebral body compression fractures. No axillary or supraclavicular adenopathy by size criteria. Right axillary surgical clips. Right breast calcifications and clips. Thyroid gland is unremarkable. Abdomen: Please see same-day separately dictated CT abdomen and pelvis. IMPRESSION: 1. Secretions in the trachea and distal airways. Findings concerning for chronic aspiration. Recommend further evaluation with speech pathology evaluation. 2. Minimal ground-glass opacity which is favored to represent atelectasis rather than infectious/inflammatory etiology. Dictated by: Bi Baker M.D. on 02/23/2020 at 18:50 Approved by: Bi Baker M.D. on 02/23/2020 at 18:57
== END ==
PROVIDERS: PCP Physician Assistant; Referring Provider Internal Medicine Gastroenterology; Visit Provider Internal Medicine Gastroenterology
DX: R10.9 Unspecified abdominal pain (principal); K86.2 Cyst of pancreas; K86.89 Other specified diseases of pancreas; R05 Cough
CPT/HCPCS: 36415; 71250; 74177; 82565; 84520; Q9967

== ENCOUNTER → 2020-03-03 15:26 | Outpatient (CLI) | payer MEDICARE, OTHER, SELFPAY ==
[2019-01-06 13:27] VITALS: BMI 19.2
[2020-03-03 16:52] LABS: Add Manual Diff / Slide Review NO; Basophils Absolute Auto 100 /uL (0-100); Basophils Percent Auto 0.9 % (0-2); Eosinophils Absolute Auto 100 /uL (0-450); Eosinophils Percent Auto 0.7 % (2-4); Hematocrit 44.3 % (36-46); Lymphocytes Absolute Auto 2900 /uL (1100-4500); Lymphocytes Percent Auto 26.7 % (25-40); Monocytes Absolute Auto 900 /uL (0-900); Monocytes Percent Auto 8.7 % (3-14); Neutrophils Absolute Auto 6800 /uL (1500-7000); Platelet Count 247 X10^3/uL (150-400); Red Blood Cell Count 4.43 X10^6/uL (4.0-5.2); Red Cell Distribution Width 12.8 % (11.6-14.8); White Blood Cell Count 10.8 X10^3/uL (4.5-11.0)
[2020-03-03 17:12] LABS: Blood Urea Nitrogen 24 mg/dL (7-17); Calcium 9.8 mg/dL (8.4-10.2); Carbon Dioxide 31 mmol/L (22-32); Chloride 102 mmol/L (98-107); Estimated Glomerular Filt Rate 53.3 mL/min (>60); Glucose 92 mg/dL (80-110); HEMOLYSIS 16 (0-50); Potassium 4.5 mmol/L (3.4-5.1); Sodium 139 mmol/L (137-145)
[2020-03-03 17:15] LABS: C-Reactive Protein Quant < 0.5 mg/dL (<1.0)
[2020-03-03 17:30] LABS: Erythrocyte Sedimentation Rate 3 MM/HR (0-20)
== END ==
PROVIDERS: PCP Physician Assistant; Referring Provider Internal Medicine Cardiovascular Disease; Visit Provider Internal Medicine Cardiovascular Disease
DX: M31.6 Other giant cell arteritis (principal)
CPT/HCPCS: 36415; 80048; 85025; 85651; 86140

== ENCOUNTER → 2020-03-17 13:31 | Outpatient (CLI) | payer MEDICARE, OTHER, SELFPAY ==
[2019-01-06 13:27] VITALS: BMI 19.2
--- NOTE | 2020-03-17 | DI.ECHO.S_ITS ---
[facility] +---------+ : : [address] : : : : [id number] : : : : Phone: [phone]+ Echocardiogram Report + + :Name: EMMANUEL DEAL Study Date: 03/17/2020 Height: 66 in : :[facility] Weight: 114 lb : : Gender: Female BSA: 1.6 m2 : :: 1940 Age: 79 yrs BP: 146/72 mmHg: :Reason For Study: Hypertension : : Performed By: Nesha Alexander : :Referring: MICHAEL HSIEH : + + Interpretation Summary 1) Normal left ventricular thickness, size, wall motion, and systolic function (EF 60-65%). 2) Normal right ventricular size and function. 3) There is very mild aortic stenosis (valve area 1.8cm2, mean gradient 7mmHg). 4) There is mild aortic regurgitation. 5) Compared to the Echo done 09/29/2015, very mild aortic stenosis is present on this study. Procedure: A two-dimensional transthoracic echocardiogram with color flow and Doppler was performed. The study quality was technically adequate. Comparison is made with the echocardiogram of 09/29/2015. The patient was in sinus rhythm with heart rates between 57-73 bpm during the exam. Left Ventricle: The left ventricle is normal in size and wall thickness. The ejection fraction is estimated to be 60-65%. Left ventricular systolic function is normal without focal wall motion abnormalities. Right Ventricle: The right ventricle is normal in size and function. Atria: Both atria are normal in size. There is no Doppler evidence for an interatrial shunt. Mitral Valve: The mitral valve is normal in structure and function. There is trace mitral regurgitation. Aortic Valve: The aortic valve is trileaflet. There is discrete nodular thickening of the right coronary cusp. There is mild aortic valve sclerosis. There is mild aortic stenosis. There is mild aortic regurgitation. Tricuspid Valve: The tricuspid valve is normal in structure and function. Pulmonary artery pressures cannot be estimated because of the lack of a measurable TR jet velocity but the IVC suggests a CVP of around 3 mmHg. There is mild tricuspid regurgitation. Pulmonic Valve: The pulmonic valve is not well seen, but is grossly normal. There is mild pulmonic regurgitation. Great Vessels: The aortic root is normal size. The ascending aorta could not be visualized. The IVC is of normal diameter and collapses greater than 50% with a sniff. This suggests a low right atrial pressure of 3 mm Hg. Pericardium/ Pleura There is no pericardial effusion. There is no pleural effusion. MMode/2D Measurements & Calculations LVIDd: 4.2 cm LVOT diam: 2.3 cm LVIDs: 2.7 cm Ao root diam: 3.1 cm FS: 35.9 % Ao Arch Diam (Prox Trans): 2.3 cm EPSS: 0.72 cm IVSd: 0.81 cm LVPWd: 0.85 cm LV posadas. diameter/BSA (cm/m^2): 2.7 LV sys. diameter/BSA (cm/m^2): 1.7 LA A2 area: 16.6 cm2 RA long axis: 3.8 cm LA A4 area: 11.3 cm2 RA area: 11.2 cm2 LA length (vol): 4.4 cm RA vol: 28.1 ml LA vol: 35.9 ml RA : 17.8 ml/m2 LA vol index: 22.8 ml/m2 IVC diam: 2.1 cm RVD1 (basal): 2.6 cm TAPSE: 2.5 cm Doppler Measurements & Calculations Ao V2 max: 189.9 cm/sec LVOT Max Demetrius: 82.8 cm/sec Ao V2 mean: 118.7 cm/sec LV V1 max P.7 mmHg Ao max P.4 mmHg LV V1 VTI: 18.7 cm Ao mean P.6 mmHg CONUSELO(I,D): 1.8 cm2 Ao V2 VTI: 42.0 cm CONSUELO(V,D): 1.8 cm2 sev ratio: 0.44 CONSUELO indexed to BSA (cm^2/m^2): 1.1 AI P1/2t: 573.3 msec AI dec slope: 190.2 cm/sec2 MV E max demetrius: 75.9 cm/sec PA V2 max: 81.9 cm/sec MV A max demetrius: 86.2 cm/sec PA V2 mean: 53.6 cm/sec MV E/A: 0.88 PA mean P.4 mmHg Med Peak E' Demetrius: 6.6 cm/sec PA pr(Accel): 31.0 mmHg E/E' med: 11.6 Lat Peak E' Demetrius: 7.9 cm/sec E/E' lat: 9.6 E/e' average: 10.6 MV dec time: 0.22 sec SV(LVOT): 76.0 ml Reading Physician:04:01 PM
[2020-03-17 16:10] LABS: Add Manual Diff / Slide Review NO; Basophils Absolute Auto 100 /uL (0-100); Basophils Percent Auto 0.9 % (0-2); Eosinophils Absolute Auto 100 /uL (0-450); Eosinophils Percent Auto 0.9 % (2-4); Hematocrit 45.7 % (36-46); Hemoglobin 15.6 g/dL (12.0-16.0); Lymphocytes Absolute Auto 2500 /uL (1100-4500); Lymphocytes Percent Auto 26.1 % (25-40); Mean Corpuscular HGB Conc 34.1 % (30-36); Mean Corpuscular Volume 99.7 fL (80-100); Monocytes Absolute Auto 900 /uL (0-900); Monocytes Percent Auto 8.9 % (3-14); Neutrophils Absolute Auto 6100 /uL (1500-7000); Neutrophils Percent Auto 63.2 % (50-75); Platelet Count 273 X10^3/uL (150-400); Red Blood Cell Count 4.58 X10^6/uL (4.0-5.2); Red Cell Distribution Width 12.9 % (11.6-14.8); White Blood Cell Count 9.7 X10^3/uL (4.5-11.0)
[2020-03-17 16:53] LABS: Alanine Aminotransferase 21 IU/L (<35); Albumin 4.8 g/dL (3.5-5.0); Albumin Globulin Ratio 1.7 (1.0-2.8); Alkaline Phosphatase 86 U/L (38-126); Aspartate Aminotransferase 34 IU/L (14-36); BUN Creatinine Ratio 25.6 (6-22); Bilirubin Total 1.2 mg/dL (0.2-1.3); Blood Urea Nitrogen 21 mg/dL (7-17); C-Reactive Protein Quant < 0.5 mg/dL (<1.0); Calcium 9.9 mg/dL (8.4-10.2); Carbon Dioxide 36 mmol/L (22-32); Chloride 100 mmol/L (98-107); Cholesterol 169 mg/dL (140-199); Estimated Glomerular Filt Rate > 60.0 mL/min (>60); Globulin 2.8 g/dL (1.7-4.1); Glucose 67 mg/dL (80-110); HDL Cholesterol 83 mg/dL (40-60); HEMOLYSIS < 15 (0-50); LDL Cholesterol Calculated 71 mg/dL (<100); Potassium 4.7 mmol/L (3.4-5.1); Sodium 139 mmol/L (137-145); Total Protein 7.6 g/dL (6.3-8.2); Triglycerides 76 mg/dL (35-150)
[2020-03-17 17:13] LABS: TSH w/ Reflex to FT4 1.17 uIU/mL (0.47-4.68)
[2020-03-17 17:32] LABS: Vitamin B12 555 pg/mL (239-931)
[2020-03-17 19:17] LABS: Vitamin D 25 Hydroxy (D3) 48.4 ng/mL (30.0-100.0)
[2020-03-17 20:56] LABS: Erythrocyte Sedimentation Rate 1 MM/HR (0-20)
[2020-03-25 01:17] LABS: Aldosterone/Renin Activity Rat 3.8 (0.0-30.0); Plama Renin, LC/MS/MS 1.169 ng/mL/hr (0.167-5.380)
[2020-04-01 07:09] LABS: Calcium 7.5 mg/dL (8.7-10.3); Parathyroid Hormone, Intact 45 pg/mL (15-65)
== END ==
PROVIDERS: PCP Physician Assistant; Referring Provider Physician Assistant; Visit Provider Physician Assistant
DX: I08.2 Rheumatic disorders of both aortic and tricuspid valves (principal); G44.019 Episodic cluster headache, not intractable; I10 Essential (primary) hypertension; I27.20 Pulmonary hypertension, unspecified; M85.80 Other specified disorders of bone density and structure, unspecified site; R53.83 Other fatigue
CPT/HCPCS: 36415; 80053; 80061; 82088; 82306; 82310; 82607; 83970; 84244; 84443; 85025; 85651; 86140; 93306

== ENCOUNTER → 2020-03-18 10:16 | Outpatient (CLI) | payer MEDICARE, OTHER, SELFPAY ==
[2019-01-06 13:27] VITALS: BMI 19.2
--- NOTE | 2020-03-18 | DI.RAD.S_ITS ---
PROCEDURE: FL BARIUM SWALLOW W SPEECH INDICATIONS: COUGH COMPARISON: TECHNIQUE: Examination was conducted in conjunction with speech pathology per standard protocol. In the lateral projection, filming was performed of the patient swallowing. AP projection filming may also be performed with patient swallowing. COMPARISON: [facility], , ECHO DOPPLER COMPLETE, 03/17/2020, 14:05. FINDINGS: Function: The oral preparatory phase appears normal, with proper containment. The subsequent oral propulsive phase, pharyngeal phase, and esophageal phase of swallowing also appear normal with all proffered substances. No laryngotracheal penetration or aspiration. No pathologic vallecular pooling. Morphology: No cricopharyngeal bar is identified. No cervical esophageal webs. No Zenker's diverticulum. No strictures. IMPRESSION: No laryngeal penetration or aspiration. Please see speech pathologist's report for detail. Dictated by: Gaudencio Bean M.D. on 03/18/2020 at 12:43 Approved by: Gaudencio Bean M.D. on 03/18/2020 at 12:44
--- NOTE | 2020-03-18 17:50 | ST.SWALLOW ---
Visit Care Team Role Provider Type Hannah Rush PA-C Primary Care Provider Advanced Auditing Manager Referring Provider Specialty: Internal Medicine Address: [address] [place] [address], [id number] Email: [email or web address] Attending Provider Non-Staff Specialty: Gastroenterology Address: [address] [place] [address], [id number] Email: ST Modified Barium Swallow Study VENTILATION EQUIPMENT TENDER Modified Barium Swallow Study Start: 03/18/20 12:20 Freq: Status: Active Protocol: Document 03/18/20 12:20 LL (Rec: 03/18/20 13:05 LL [id number]) Modified Barium Swallow Study Total Time Visit Start Time 10:30 Visit Stop Time 11:15 Total Visit Minutes 45 Referral Referring Physician Hannah Rush PA-C Reason for Referral Cough Setting Setting Outpatient Care Patient Information Identification Type Name Patient History Alexandria is an 79-year-old female who was referred by her primary care physician, Hannah Rush due to cough and concern for chronic aspiration from recent chest CT results (02/23/2020). Per chest CT results, secretions in the trachea and distal airways were found, causing concern for chronic aspiration . Patient reported dx of COPD, which she uses 2.5 L of oxygen when sleeping. Upon chart review, it was noted that patient is a current every day smoker (cigarettes). 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 When asked if patient has been experiencing any overt s/sx of aspiration, she initially stated no. However, patient later reported occasional coughing when eating / drinking. Subjective Observations Alexandria arrived on time and provided case history. She was able to follow all instructions. Patient Positioning Position View Lat-A/P Imaging Lateral View Textures Administered Trials Presented Thin Liquid via Spoon,Thin Liquid via Cup,[place] Liquid via Spoon,[place] Liquid via Cup,Honey Liquid via Spoon, Pudding Thick Liquid via Spoon ,Regular Textures,Barium Tablet Oral Phase Source: MBSIMP (TM) (C) Bolus Specific Scoring Grid Lip Closure WFL Tongue Control During Bolus Hold WFL Bolus Prep/Mastication WFL Bolus Transport/Lingual Motion WFL A/P Lingual Propulsion Delay No Oral Residue Mild Impairment Residue Clearing WFL Nasal Regurgitation No Additional Oral Phase Observations Oral Peripheral Exam: Normal oral cavity size and symmetrical structures WFL of strength, coordination, and ROM. Patient has complete natural dentition in adequate condition. Oral Phase: WFL. Mild oral residue present which cleared with subsequent swallows, not abnormal for intake of barium contrast. Pharyngeal Phase Source: MBSIMP (TM) (C) Bolus Specific Scoring Grid Delayed Initiation of Pharyngeal Swallow No Soft Palate Elevation WFL Tongue Base Strength/Range of Motion WFL Residue Along the Tongue Base Yes: mild Clearance of Residue Along Tongue Base Minimal Impairment Laryngeal Elevation WFL Anterior Hyoid Movement WFL Epiglottic Range of Motion Mild Impairment Vallecular Residue Yes: mild-moderate Clearance of Vallecular Residue Moderate Impairment Laryngeal Vestibular Closure WFL Pharyngeal Stripping Wave WFL Posterior Pharyngeal Wall Residue Yes: mild Clearance of Posterior Pharyngeal Wall Minimal Impairment Residue Upper Esophageal Sphincter Opening WFL Residue in the Pyriform Sinuses Yes: mild-moderate Esophageal Clearance Upright Position WFL Pharyngoesophageal Backflow Observed No Additional Pharyngeal Phase Observations Pharyngeal Phase: Soft palate elevation, laryngeal elevation , anterior hyoid excursion, laryngeal vestibular closure, pharyngeal stripping wave, and UES opening observed to be WFL. Patient presented with partial epiglottic inversion, mild- moderate collection of pharyngeal residue, and mild tongue base residue, which resulted in residue spilling over into the pyriform sinuses after the swallow. Partial epiglottic inversion and collection of pharyngeal residue remaining after the swallow increases the risk of aspiration / aspiration pneumonia. *Patient independently performed a double swallow for a majority of PO trials, which assisted in clearing pharyngeal residues. A/P View Textures Administered Trials Presented Thin Liquid via Cup,Barium Tablet A/P View Observations Pharyngeal Contraction WFL Esophageal Clearance Upright Position WFL Esophageal Observations Esophageal Function Complete esophageal clearance observed. Rapid bolus flow through esophagus and into stomach was observed. Clinical Impressions Dysphagia Type Mild pharyngeal dysphagia Findings Patient currently presents with mild pharyngeal dysphagia characterized by partial epiglottic inversion, mild- moderate collection of pharyngeal residue, and mild tongue base residue. These impairments increase patient's risk of aspiration and/or aspiration pneumonia. VENTILATION EQUIPMENT TENDER reviewed results with patient and recommended the several swallow strategies to reduce pharyngeal residue in order to improve airway protection / reduce risk of aspiration. Recommended swallow strategies : upright at 90 degrees for all oral intake, alternate bites/sips, small bites/sips, double swallow (patient independently implements), and slow intake rate. Recommendations Diet Liquids Order Thin Diet Order Regular Medication Recommendation As Tolerated,Whole,One at a Time Aspiration Precautions Recommended Precautions Upright at 90 Degrees, Alternate Liquids/Solids,Small Bites/Sips,Double Swallow Additional Precautions Slow intake rate. Treatment Plan Additional Recommendations/Comments Recommend ST follow up x 1-2 to review MBS results and train/educate compensatory swallow strategies / aspiration precautions. Patient requested to have MBS results sent to her director of preclinical research, Dr. Emmanuel Patel.
== END ==
PROVIDERS: PCP Physician Assistant; Referring Provider Physician Assistant; Visit Provider Internal Medicine Gastroenterology
DX: R05 Cough (principal)
CPT/HCPCS: 74230; 92611

== ENCOUNTER → 2020-04-21 19:59 | Outpatient (ROUT) | payer MEDICARE, OTHER, SELFPAY ==
[2019-01-06 13:27] VITALS: BMI 19.2
== END ==
PROVIDERS: PCP Physician Assistant; Visit Provider Student in an Organized Health Care Education/Training Program
DX: R39.9 Unspecified symptoms and signs involving the genitourinary system (principal)
CPT/HCPCS: 87086

== ENCOUNTER → 2020-05-03 13:14 | Outpatient (CLI) | payer MEDICARE, OTHER, SELFPAY ==
[2019-01-06 13:27] VITALS: BMI 19.2
[2020-05-03 15:01] LABS: Ferritin 32 ng/mL (11-264)
== END ==
PROVIDERS: PCP Physician Assistant; Referring Provider Psychiatry & Neurology Neuromuscular Medicine; Visit Provider Psychiatry & Neurology Neuromuscular Medicine
DX: G25.81 Restless legs syndrome (principal)
CPT/HCPCS: 36415; 82728

== ENCOUNTER → 2020-06-29 12:15 | Outpatient (CLI) | payer MEDICARE, OTHER, SELFPAY ==
[2019-01-06 13:27] VITALS: BMI 19.2
--- NOTE | 2020-06-29 12:17 | DI.US.S_ITS ---
PROCEDURE: US THYROID INDICATIONS: Other specified disorders of thyroid TECHNIQUE: Real-time scanning was performed of the thyroid gland, with image documentation. COMPARISON: None. FINDINGS: Right: Thyroid lobe measures 4.4 x 2.0 x 2.5 cm, and is homogeneous in echotexture. Left: Thyroid lobe measures 4.1 x 1.5 x 1.4 cm, and is homogenous in echotexture. Isthmus: 1.1 mm thick. Nodule number: 1 Location: Right mid Size: 1.1 x 0.7 x 0.8 cm. Composition: Predominantly solid Echogenicity: Hypoechoic Shape: wider than tall. Margins: Smooth Echogenic foci: None Total points: 4 ACR TI-RADS category: Moderately suspicious Nodule number: 2 Location: Right superior Size: 0.7 x 0.6 x 0.8 cm. Composition: Predominantly solid Echogenicity: Hypoechoic Shape: wider than tall. Margins: Smooth Echogenic foci: None Total points: 4 ACR TI-RADS category: Moderately suspicious Nodule number: 3 Location: Right lower pole Size: 0.6 x 0.5 x 0.8 cm. Composition: Predominantly solid Echogenicity: Hypoechoic Shape: wider than tall. Margins: Smooth Echogenic foci: None Total points: 4 ACR TI-RADS category: Moderately suspicious Nodule number: 4 Location: Left superior Size: 1.0 x 0.8 x 1.0 cm. Composition: Predominantly cystic Echogenicity: Hypoechoic Shape: wider than tall. Margins: Smooth Echogenic foci: None Total points: 2 ACR TI-RADS category: Not suspicious IMPRESSION: Bilateral thyroid nodules. Recommend continued followup ultrasound as detailed below. ACR TI-RADS definitions and recommendations: TI-RADS 1 (benign): 0 points. FNA not needed. TI-RADS 2 (not suspicious): 2 points. FNA not needed. TI-RADS 3 (mildly suspicious): 3 points. * FNA if 2.5 cm or larger, follow up if 1.5 cm or larger (at 1, 3, and 5 years). TI-RADS 4 (moderately suspicious): 4-6 points. * FNA if 1.5 cm or larger, follow up if 1 cm or larger (at 1, 2, 3, and 5 years). TI-RADS 5 (highly suspicious): 7 points or more. * FNA if 1 cm or larger, follow up if 0.5 cm or larger (every year for 5 years). Dictated by: Abdelrahman MAURER Interpreted: Pancho Lang MD on 06/29/2020 at 13:13 Approved by: Pancho Lang M.D. on 06/29/2020 at 14:15
== END ==
PROVIDERS: PCP Physician Assistant; Referring Provider Student in an Organized Health Care Education/Training Program; Visit Provider Student in an Organized Health Care Education/Training Program
DX: E07.89 Other specified disorders of thyroid (principal); E04.2 Nontoxic multinodular goiter
CPT/HCPCS: 76536

== ENCOUNTER → 2020-07-26 11:56 | Outpatient (CLI) | payer MEDICARE, OTHER, SELFPAY ==
[2019-01-06 13:27] VITALS: BMI 19.2
[2020-07-26 12:26] LABS: Add Manual Diff / Slide Review NO; Basophils Absolute Auto 100 /uL (0-100); Basophils Percent Auto 0.6 % (0-2); Eosinophils Absolute Auto 100 /uL (0-450); Eosinophils Percent Auto 0.5 % (2-4); Hematocrit 43.6 % (36-46); Hemoglobin 14.7 g/dL (12.0-16.0); Lymphocytes Absolute Auto 2000 /uL (1100-4500); Lymphocytes Percent Auto 19.3 % (25-40); Mean Corpuscular HGB Conc 33.6 % (30-36); Mean Corpuscular Hemoglobin 33.5 PG (26-34); Mean Corpuscular Volume 99.5 fL (80-100); Monocytes Absolute Auto 800 /uL (0-900); Monocytes Percent Auto 7.4 % (3-14); Neutrophils Absolute Auto 7500 /uL (1500-7000); Neutrophils Percent Auto 72.2 % (50-75); Platelet Count 270 X10^3/uL (150-400); Red Blood Cell Count 4.38 X10^6/uL (4.0-5.2); Red Cell Distribution Width 12.9 % (11.6-14.8); White Blood Cell Count 10.3 X10^3/uL (4.5-11.0)
[2020-07-26 12:43] LABS: Alanine Aminotransferase 22 IU/L (<35); Albumin 4.4 g/dL (3.5-5.0); Albumin Globulin Ratio 1.4 (1.0-2.8); Alkaline Phosphatase 86 U/L (38-126); Aspartate Aminotransferase 32 IU/L (14-36); Bilirubin Total 0.9 mg/dL (0.2-1.3); Blood Urea Nitrogen 24 mg/dL (7-17); C-Reactive Protein Quant < 0.5 mg/dL (<1.0); Calcium 9.5 mg/dL (8.4-10.2); Carbon Dioxide 36 mmol/L (22-32); Chloride 102 mmol/L (98-107); Erythrocyte Sedimentation Rate 6 MM/HR (0-20); Estimated Glomerular Filt Rate > 60.0 mL/min (>60); Globulin 3.2 g/dL (1.7-4.1); Glucose 120 mg/dL (80-110); HEMOLYSIS < 15 (0-50); Potassium 4.8 mmol/L (3.4-5.1); Sodium 140 mmol/L (137-145); Total Protein 7.6 g/dL (6.3-8.2)
== END ==
PROVIDERS: PCP Physician Assistant; Referring Provider Physician Assistant; Visit Provider Physician Assistant
DX: G44.019 Episodic cluster headache, not intractable (principal)
CPT/HCPCS: 36415; 80053; 85025; 85651; 86140

== ENCOUNTER → 2020-09-01 13:28 | Outpatient (CLI) | payer MEDICARE, OTHER, SELFPAY ==
[2019-01-06 13:27] VITALS: BMI 19.2
[2020-09-01 16:27] LABS: BUN Creatinine Ratio 31.5 (6-22); Blood Urea Nitrogen 23 mg/dL (7-17); Estimated Glomerular Filt Rate > 60.0 mL/min (>60)
== END ==
PROVIDERS: PCP Physician Assistant; Referring Provider Internal Medicine Gastroenterology; Visit Provider Internal Medicine Gastroenterology
DX: D13.6 Benign neoplasm of pancreas (principal)
CPT/HCPCS: 36415; 82565; 84520

== ENCOUNTER → 2020-09-05 12:44 | Outpatient (CLI) | payer MEDICARE, OTHER, SELFPAY ==
[2019-01-06 13:27] VITALS: BMI 19.2
--- NOTE | 2020-09-05 12:49 | DI.RAD.S_ITS ---
PROCEDURE: XR CLAVICLE LT INDICATIONS: fall pain left shoulder/arm, r/o bony abnormality TECHNIQUE: 2 views of the clavicle were acquired. COMPARISON: [facility], KANG, XR HUMERUS LT 2V, 09/05/2020, 12:50. [facility], CR, XR SHOULDER LT MIN 2V, 09/05/2020, 12:50. FINDINGS: Bones: No fractures or dislocations in left clavicle. Comminuted fracture of the humeral head involving the greater tuberosity. No suspicious bony lesions. Soft tissues: No suspicious soft tissue calcifications. IMPRESSION: 1. Comminuted left humeral head fracture. Please see shoulder x-ray report. 2. No fracture or dislocation of the left clavicle. Dictated by: Gaudencio Bean M.D. on 09/05/2020 at 13:35 Approved by: Gaudencio Bean M.D. on 09/05/2020 at 13:36
--- NOTE | 2020-09-05 12:49 | DI.RAD.S_ITS ---
PROCEDURE: XR HUMERUS LT 2V INDICATIONS: fall pain left shoulder/arm, r/o bony abnormality TECHNIQUE: 2 views of the humerus were acquired. COMPARISON: [facility], CR, XR SHOULDER LT MIN 2V, 09/05/2020, 12:50. [facility], CR, XR CLAVICLE LT, 09/05/2020, 12:50. FINDINGS: Bones: There is a comminuted humeral head fracture involving the greater tuberosity with mild displacement. There is irregularity in the lateral epicondyle of the humerus. Possible nondisplaced left 4th rib fracture. No suspicious bony lesions. Soft tissues: No suspicious soft tissue calcifications. IMPRESSION: 1. Comminuted humeral head fracture. 2. Cortical irregularity of the epicondyle. Recommend elbow x-ray for further evaluation. 3. Suspect nondisplaced left 4th rib fracture. Dictated by: Gaudencio Bean M.D. on 09/05/2020 at 13:44 Approved by: Gaudencio Bean M.D. on 09/05/2020 at 13:48
--- NOTE | 2020-09-05 12:49 | DI.RAD.S_ITS ---
PROCEDURE: XR SHOULDER LT MIN 2V INDICATIONS: fall pain left shoulder/arm, r/o bony abnormality TECHNIQUE: 3 views of the shoulder were acquired. COMPARISON: None. FINDINGS: Bones: There is a comminuted humeral head fracture involving the greater tuberosity with mild displacement. The humeral head is anatomically seated in glenoid. Mild widening of subacromial space may be secondary to joint effusion. No suspicious bony lesions. Visualized ribs appear intact. Soft tissues: No suspicious soft tissue calcifications. IMPRESSION: Comminuted humeral head fracture. Dictated by: Gaudencio Bean M.D. on 09/05/2020 at 13:43 Approved by: Gaudencio Bean M.D. on 09/05/2020 at 13:44
== END ==
PROVIDERS: PCP Physician Assistant; Referring Provider Physician Assistant; Visit Provider Physician Assistant
DX: S42.252A Displaced fracture of greater tuberosity of left humerus, initial encounter for closed fracture (principal); W19.XXXA Unspecified fall, initial encounter
CPT/HCPCS: 73000; 73030; 73060

== ENCOUNTER → 2020-09-15 11:12 | Outpatient (CLI) | payer MEDICARE, OTHER, SELFPAY ==
[2019-01-06 13:27] VITALS: BMI 19.2
--- NOTE | 2020-09-15 12:19 | DI.CT.S_ITS ---
PROCEDURE: CT ABDOMEN W CON INDICATIONS: Benign neoplasm of pancreas TECHNIQUE: After the administration of oral and intravenous contrast, 5 mm thick sections acquired from the diaphragms to the iliac crests. 5 mm thick coronal and sagittal reformats were acquired. For radiation dose reduction, the following was used: automated exposure control, adjustment of mA and/or kV according to patient size. COMPARISON: [facility], CT, CT ABDOMEN WO/W CON, 10/14/2018, 13:02. [facility], CT, CT ABDOMEN WO/W CON, 05/07/2019, 10:58. [facility], CT, CT ABDOMEN PELVIS W CON, 02/23/2020, 11:56. FINDINGS: Image quality: Excellent. Lung bases: Lung bases are clear. Heart size is normal. Solid organs: Liver is elongated in the craniocaudal dimension but otherwise normal in morphology. Gallbladder wall is normal thickness . Biliary system is non dilated. There are several punctate calcifications throughout the pancreatic head, neck and in the uncinate process. The patient has undergone distal pancreatectomy and splenectomy. The visible pancreatic duct is smooth in contour and measures between three and 4 mm in caliber. There is a round cystic focus in the proximal tail of the pancreas measuring 6 mm, 1 stable that has no connection to the main pancreatic duct. The spleen is normal in size and enhancement. No adrenal nodules. Kidneys are normal in size, without hydronephrosis. There are occasional nonobstructive intrarenal calcifications, the largest in the right lower pole measures 3 mm. Peritoneum and bowel: Contrast enhanced bowel loops appear normal in caliber. No free fluid or air. Nodes and vessels: No retroperitoneal or mesenteric adenopathy by size criteria. Aorta and inferior vena cava are normal in size. Heavy abdominal aortic atherosclerotic calcification. Bones: No suspicious bony lesions. Severe degenerative disc and endplate change at L5-S1. No vertebral body compression fractures. Miscellaneous: No ventral hernias. IMPRESSION: 1. Stable size of of a simple cyst in the proximal tail of the pancreas. No new pancreatic lesions. 2. Normalization of pancreatic duct caliber. 3. Several tiny pancreatic glandular calcifications suggesting healed chronic pancreatitis. 4. Nonobstructing bilateral intrarenal calculi, the largest appears chronic. These may represent small vessel atherosclerosis. Dictated by: Myra Jain M.D. on 09/15/2020 at 13:45 Approved by: Myra Jain M.D. on 09/15/2020 at 13:59
== END ==
PROVIDERS: PCP Physician Assistant; Referring Provider Internal Medicine Gastroenterology; Visit Provider Internal Medicine Gastroenterology
DX: D13.6 Benign neoplasm of pancreas (principal); K86.2 Cyst of pancreas; N20.0 Calculus of kidney
CPT/HCPCS: 74160; Q9967

== ENCOUNTER → 2020-10-05 19:00 | Outpatient (ROUT) | payer MEDICARE, OTHER, SELFPAY ==
[2019-01-06 13:27] VITALS: BMI 19.2
== END ==
PROVIDERS: PCP Physician Assistant; Visit Provider Internal Medicine
DX: N39.0 Urinary tract infection, site not specified (principal)
CPT/HCPCS: 87077; 87086; 87186

== ENCOUNTER → 2021-09-20 11:07 | Outpatient (CLI) | payer MEDICARE, OTHER, SELFPAY ==
[2019-01-06 13:27] VITALS: BMI 19.2
[2021-09-20 13:40] LABS: COVID19 -Nasal RAPID Negative (Negative)
== END ==
PROVIDERS: PCP Physician Assistant; Visit Provider Family Medicine Sleep Medicine
DX: Z20.822 Contact with and (suspected) exposure to COVID-19 (principal)
CPT/HCPCS: 87635; C9803

== ENCOUNTER → 2021-09-21 10:00 | Outpatient (CLI) | payer MEDICARE, OTHER, SELFPAY ==
[2019-01-06 13:27] VITALS: BMI 19.2
--- NOTE | 2021-09-21 | DI.NM.S_ITS ---
PROCEDURE: NM CLAI PERF SPECT R&S PHARM Rest and pharmacological stress myocardial perfusion SPECT with gated imaging and ejection fraction RADIOPHARMACEUTICAL: 27.3 mCi Tc-99m tetrafosmin IV at rest and 27.0 mCi Tc-99m tetrafosmin IV at peak effect of pharmacological stress. [id number] was performed. INDICATIONS: Abnormal electrocardiogram [ECG] [EKG] TECHNIQUE: Radiopharmaceutical was injected at peak stress test, and also at rest. SPECT images were obtained. SPECT myocardial perfusion images were displayed in short axis, horizontal long axis, and vertical long axis views. Gated images were reviewed using [employer] software. COMPARISON: None. CARDIAC STRESS: A pharmacologic stress test was performed under the supervision of an attending staff, using an infusion of regadenoson. Hemodynamic data: There is normal blood pressure and heart rate response to pharmacologic stress. Symptoms: The patient denied anginal chest pain. EKG: No diagnostic changes of ischemia; no ectopy. FINDINGS: Raw data: There is good myocardial uptake of radiotracer. No significant motion artifacts. Hsvu-ai-abejr ratio is 0.31 (normal is less than 0.38 for tetrafosmin tracer). Left ventricle function: Gated images demonstrate normal left ventricular wall thickening. No segmental wall motion abnormalities. No transient ischemic dilation; TID is 0.68 (normal less than 1.3). Left ventricle resting end diastolic volume is 69 mL. Left ventricle stress ejection fraction is >75%; normal range is above 45%. Myocardial perfusion: There is normal distribution of activity in the right and left ventricular myocardium. No fixed or reversible perfusion defects. IMPRESSION: No evidence of pharmacologic induced ischemia or scar. Hyperdynamic LV function. Dictated by: Karen Garcia D.O. on 09/22/2021 at 14:37 Approved by: Karen Garcia M.D. on 09/22/2021 at 14:40
== END ==
PROVIDERS: PCP Internal Medicine; Referring Provider Internal Medicine Cardiovascular Disease; Visit Provider Internal Medicine Cardiovascular Disease
DX: R07.89 Other chest pain (principal); R94.31 Abnormal electrocardiogram [ECG] [EKG]
CPT/HCPCS: 78452; 93017; A9502; J2785

== ENCOUNTER → 2022-05-23 07:40 | Outpatient (CLI) | payer MEDICARE, OTHER, SELFPAY ==
[2019-01-06 13:27] VITALS: BMI 19.2
--- NOTE | 2022-05-23 | DI.NM.S_ITS ---
PROCEDURE: [place] GASTRIC EMPTYING STUDY RADIOPHARMACEUTICAL: 1 mCi Tc-99m sulfur colloid in an egg sandwich. INDICATIONS: Early satiety TECHNIQUE: A Tc-99m labeled sulfur colloid labeled egg sandwich or oatmeal was served to the patient. Anterior and posterior planar images of the abdomen were obtained at 0 minutes and 30 minutes, then at hourly intervals up to 4 hours. The patient was upright and ambulating during the interval. COMPARISON: [place], [place], GASTRIC EMPTYING STUDY, 06/17/2017, 8:36. FINDINGS: The stomach has normal size, morphology, and position. There is normal emptying of solid gastric contents from the stomach by visual inspection. No gastroesophageal reflux is visualized. The percentage of tracer retained at specific time points are as follows: Time point Percent gastric retention Normal range 30 minutes 57% 70% or more 1 hour 25% 30% to 90% 2 hours 6% 60% or less 3 hours - 30% or less 4 hours - 10% or less IMPRESSION: More rapid gastric emptying than normal. This finding may be secondary to early diabetes, cyclic vomiting syndrome, functional dyspepsia or postoperative states. Recommend clinical correlation. Dictated by: Gaudencio Bean M.D. on 05/23/2022 at 14:02 Approved by: Gaudencio eBan M.D. on 05/23/2022 at 14:04
== END ==
PROVIDERS: PCP Internal Medicine; Referring Provider Internal Medicine Gastroenterology; Visit Provider Internal Medicine Gastroenterology
DX: R68.81 Early satiety (principal)
CPT/HCPCS: 78264; A9541

== ENCOUNTER → 2022-08-30 11:39 | Outpatient (CLI) | payer MEDICARE, OTHER, SELFPAY ==
[2019-01-06 13:27] VITALS: BMI 19.2
[2022-08-30 12:21] LABS: Estimated Glomerular Filt Rate > 60 mL/min (>60)
== END ==
PROVIDERS: PCP Internal Medicine; Referring Provider Internal Medicine Gastroenterology; Visit Provider Internal Medicine Gastroenterology
DX: K86.2 Cyst of pancreas (principal)
CPT/HCPCS: 36415; 82565

== ENCOUNTER → 2023-02-20 12:14 | Outpatient (CLI) | payer MEDICARE, OTHER, SELFPAY ==
[2019-01-06 13:27] VITALS: BMI 19.2
--- NOTE | 2023-02-20 12:15 | DI.US.S_ITS ---
PROCEDURE: US CAROTID DOPPLER BI INDICATIONS: SUPRAVENTRICULAR TACHYCARDIA TECHNIQUE: Color and pulse Doppler interrogation was performed of both carotid systems, with image documentation and velocity measurements. COMPARISON: [facility], , CAROTID ARTERY DOPPLER [facility], 09/17/2017, 11:13. FINDINGS: Stenosis calculations are based on SRU (Society of Radiologists in Ultrasound) criteria. Right side: Brachial blood pressure: 127/67 mm Hg. Common carotid artery peak systolic velocity: 96 cm/sec. Internal carotid artery peak systolic velocity: 135 cm/sec. Internal carotid artery end diastolic velocity: 26 cm/sec. External carotid artery peak systolic velocity: 113 cm/sec. ICA/CCA peak systolic ratio: 1.4 . Smith scale imaging description: Mild atheromatous plaque is present at the carotid bifurcation. Percent internal carotid artery stenosis: 50-69% stenosis. Vertebral artery: Flow direction is antegrade. Left side: Brachial blood pressure: 125/60 mm Hg. Common carotid artery peak systolic velocity: 90 cm/sec. Internal carotid artery peak systolic velocity: 111 cm/sec. Internal carotid artery end diastolic velocity: 19 cm/sec. External carotid artery peak systolic velocity: 97 cm/sec. ICA/CCA peak systolic ratio: 1.2 . Smith scale imaging description: Atheromatous plaque is present at the carotid bifurcation and the carotid bulb. Percent internal carotid artery stenosis: Less than 50% stenosis. Vertebral artery: Flow direction is antegrade. IMPRESSION: 1. 50-69% stenosis of the right internal carotid artery. This is an interval increase when compared with the prior study from September 17, 2017. 2. Less than 50% stenosis of the left internal carotid artery. Dictated by: Geri Mittal M.D. on 02/20/2023 at 16:54 Approved by: Geri Mittal M.D. on 02/20/2023 at 16:55
== END ==
PROVIDERS: PCP Internal Medicine; Referring Provider Internal Medicine Cardiovascular Disease; Visit Provider Internal Medicine Cardiovascular Disease
DX: I65.23 Occlusion and stenosis of bilateral carotid arteries (principal); I47.1 Supraventricular tachycardia
CPT/HCPCS: 93880

== ENCOUNTER → 2023-07-25 11:10 | Outpatient (CLI) | payer MEDICARE, OTHER, SELFPAY ==
[2019-01-06 13:27] VITALS: BMI 19.2
--- NOTE | 2023-07-25 11:12 | DI.US.S_ITS ---
PROCEDURE: US CAROTID DOPPLER BI INDICATIONS: CAROTID STENOSIS TECHNIQUE: Color and pulse Doppler interrogation was performed of both carotid systems, with image documentation and velocity measurements. COMPARISON: [facility], , US CAROTID DOPPLER BI, 02/20/2023, 12:41. FINDINGS: Stenosis calculations are based on SRU (Society of Radiologists in Ultrasound) criteria. PROCEDURE: VAS CAROTID DUPLEX BILATERAL INDICATIONS: annual surveillance, dizzy TECHNIQUE: Color and pulse Doppler interrogation was performed of both carotid systems, with image documentation and velocity measurements. COMPARISON: FINDINGS: Stenosis calculations are based on SRU (Society of Radiologists in Ultrasound) criteria. Right side: Brachial blood pressure: 120/60 mm Hg. Common carotid artery peak systolic velocity: 102 cm/sec, previously 96 cm/sec. Internal carotid artery peak systolic velocity: 141 cm/sec, previously 135 cm/sec. Internal carotid artery end diastolic velocity: 27 cm/sec, previously 26 cm/sec. External carotid artery peak systolic velocity: 102 cm/sec, previously 113 cm/sec. ICA/CCA peak systolic ratio: 1.4 Smith scale imaging description: Mild atheromatous plaque Percent internal carotid artery stenosis: 50-69% by peak systolic velocity criteria. Vertebral artery: Flow direction is antegrade. Left side: Brachial blood pressure: 121/58 mm Hg. Common carotid artery peak systolic velocity: 99 cm/sec, previously 99 cm/sec. Internal carotid artery peak systolic velocity: 140 cm/sec, previously 109 cm/sec. sec. Internal carotid artery end diastolic velocity: 27 cm/sec, previously 23 cm/sec. External carotid artery peak systolic velocity: 96 cm/sec, previously 97 cm/sec. ICA/CCA peak systolic ratio: 1.4 Smith scale imaging description: Mild atheromatous plaque Percent internal carotid artery stenosis: Increased, now between 50-69% by peak systolic velocity criteria. Vertebral artery: Flow direction is antegrade. IMPRESSION: Bilateral moderate, 50-69% internal carotid artery stenosis by peak systolic velocity criteria. Interval increase stenosis in the left internal carotid artery. Dictated by: Rasheed Loaiza M.D. on 07/25/2023 at 13:24 Approved by: Rasheed Loaiza M.D. on 07/25/2023 at 13:52
== END ==
PROVIDERS: PCP Internal Medicine; Referring Provider Internal Medicine Cardiovascular Disease; Visit Provider Internal Medicine Cardiovascular Disease
DX: I65.23 Occlusion and stenosis of bilateral carotid arteries (principal)
CPT/HCPCS: 93880

== ENCOUNTER → 2023-10-11 08:33 | Outpatient (CLI) | payer MEDICARE, OTHER, SELFPAY ==
[2019-01-06 13:27] VITALS: BMI 19.2
[2023-10-11 09:54] LABS: Add Manual Diff / Slide Review NO; Basophils Absolute Auto 100 /uL (0-100); Eosinophils Absolute Auto 200 /uL (0-450); Eosinophils Percent Auto 2.2 % (2-4); Hematocrit 41.6 % (36-46); Hemoglobin 13.7 g/dL (12.0-16.0); Lymphocytes Absolute Auto 2300 /uL (1100-4500); Lymphocytes Percent Auto 28.6 % (25-40); Mean Corpuscular HGB Conc 32.9 % (30-36); Mean Corpuscular Hemoglobin 32.1 PG (26-34); Mean Corpuscular Volume 97.6 fL (80-100); Monocytes Absolute Auto 800 /uL (0-900); Monocytes Percent Auto 9.5 % (3-14); Neutrophils Absolute Auto 4700 /uL (1500-7000); Neutrophils Percent Auto 58.7 % (50-75); Platelet Count 260 X10^3/uL (150-400); Red Blood Cell Count 4.26 X10^6/uL (4.0-5.2); Red Cell Distribution Width 13.9 % (11.6-14.8); White Blood Cell Count 8.1 X10^3/uL (4.5-11.0)
[2023-10-11 10:20] LABS: Alanine Aminotransferase 19 IU/L (<35); Albumin 4.1 g/dL (3.5-5.0); Albumin Globulin Ratio 1.5 (1.0-2.8); Alkaline Phosphatase 66 U/L (38-126); Aspartate Aminotransferase 30 IU/L (14-36); BUN Creatinine Ratio 31.4 (6-22); Bilirubin Total 0.9 mg/dL (0.2-1.3); Blood Urea Nitrogen 27 mg/dL (7-17); Calcium 9.6 mg/dL (8.4-10.2); Carbon Dioxide 37 mmol/L (22-32); Chloride 102 mmol/L (98-107); Cholesterol 148 mg/dL (140-199); Estimated Glomerular Filt Rate > 60 mL/min (>60); Globulin 2.8 g/dL (1.7-4.1); Glucose 102 mg/dL (80-110); HDL Cholesterol 82 mg/dL (40-60); HEMOLYSIS < 15 (0-50); LDL Cholesterol Calculated 53 mg/dL (<100); Magnesium 1.8 mg/dL (1.6-2.3); Potassium 5.1 mmol/L (3.4-5.1); Sodium 141 mmol/L (137-145); Total Protein 6.9 g/dL (6.3-8.2); Triglycerides 64 mg/dL (35-150)
== END ==
PROVIDERS: PCP Internal Medicine; Referring Provider Internal Medicine Cardiovascular Disease; Visit Provider Internal Medicine Cardiovascular Disease
DX: M79.604 Pain in right leg (principal); E78.5 Hyperlipidemia, unspecified; M79.605 Pain in left leg
CPT/HCPCS: 36415; 80053; 80061; 83735; 85025

== ENCOUNTER → 2024-01-09 10:58 | Outpatient (CLI) | payer MEDICARE, OTHER, SELFPAY ==
[2019-01-06 13:27] VITALS: BMI 19.2
--- NOTE | 2024-01-09 11:02 | DI.RAD.S_ITS ---
PROCEDURE: XR CHEST 2V INDICATIONS: Shortness of breath TECHNIQUE: 2 views of the chest were acquired. COMPARISON: [facility], , XR CHEST 1V, 09/04/2019, 14:47. FINDINGS: Surgical changes and devices: Surgical clips project over the right breast with associated rim calcified calcifications likely representing fat necrosis. Additional surgical clips project over the right axilla. Lungs and pleura: Lungs are clear. No pleural effusions or pneumothorax. Hyperaeration and flattening of the hemidiaphragms compatible with chronic obstructive pulmonary physiology. No dense consolidation. Mediastinum: Mediastinal contours are normal. Heart size is normal. Bones and chest wall: No suspicious bony abnormalities. Soft tissues appear unremarkable. IMPRESSION: Chest without acute cardiopulmonary abnormalities. No focal consolidation. Findings compatible with chronic obstructive pulmonary physiology. Dictated by: Darryl Judge M.D. on 01/09/2024 at 15:14 Approved by: Darryl Judge M.D. on 01/09/2024 at 15:15
== END ==
LOC: RAD 11:01
PROVIDERS: PCP Family Medicine; Referring Provider Internal Medicine Pulmonary Disease; Visit Provider Internal Medicine Pulmonary Disease
DX: R06.02 Shortness of breath (principal)
CPT/HCPCS: 71046

== ENCOUNTER → 2024-01-23 11:53 | Outpatient (CLI) | payer MEDICARE, OTHER, SELFPAY ==
[2019-01-06 13:27] VITALS: BMI 19.2
[2024-01-23 13:18] LABS: Hematocrit 32.7 % (36-46); Hemoglobin 10.4 g/dL (12.0-16.0); Mean Corpuscular HGB Conc 31.9 % (30-36); Mean Corpuscular Hemoglobin 28.3 PG (26-34); Mean Corpuscular Volume 88.7 fL (80-100); Platelet Count 341 X10^3/uL (150-400); Red Blood Cell Count 3.69 X10^6/uL (4.0-5.2); Red Cell Distribution Width 22.9 % (11.6-14.8); White Blood Cell Count 9.2 X10^3/uL (4.5-11.0)
== END ==
PROVIDERS: PCP Family Medicine; Referring Provider Family Medicine; Visit Provider Family Medicine
DX: D64.9 Anemia, unspecified (principal)
CPT/HCPCS: 36415; 85027

== ENCOUNTER → 2024-12-09 10:57 | Outpatient (CLI) | payer MEDICARE, OTHER, SELFPAY ==
[2019-01-06 13:27] VITALS: BMI 19.2
--- NOTE | 2024-12-09 | DI.US.S_ITS ---
PROCEDURE: US PERIPH VENOUS LOW EXTREM LT INDICATIONS: ACUTE DVT TECHNIQUE: Real-time imaging, as well as color and pulse Doppler interrogation, were performed of the lower extremity deep veins from the inguinal ligament to the popliteal fossa, with documentation of the visualized calf veins. COMPARISON: None. FINDINGS: The common femoral, femoral, popliteal, and the visualized calf veins are normally compressible, and free of intraluminal thrombus. Color and pulse Doppler demonstrate normal phasic intraluminal flow. There is normal augmentation response to distal compression maneuver. IMPRESSION: No findings of lower extremity deep venous thrombosis. Dictated by: Braxton Wade M.D. on 12/09/2024 at 11:07 Approved by: Braxton Wade M.D. on 12/09/2024 at 11:08
== END ==
LOC: US 11:00
PROVIDERS: PCP Family Medicine; Referring Provider Internal Medicine; Visit Provider Internal Medicine
DX: I82.432 Acute embolism and thrombosis of left popliteal vein (principal); R22.43 Localized swelling, mass and lump, lower limb, bilateral
CPT/HCPCS: 93971